=== PATIENT | male | born 1945 | race Caucasian/White ===

== ENCOUNTER 2016-07-24 09:22 | Day surgery (SDC) | payer MEDICARE, BC ==
[2016-07-22 10:37] VITALS: BMI 51.7
[2016-07-24] MEDS ORDERED: LACTATED RINGERS 1,000 ML IV ONE (10:25)
[2016-07-24 10:30] VITALS: RESP 18; TEMP 98.5
[2016-07-24 10:40] LABS: Glucose,Whole Blood 110 mg/dL (75-99)
[2016-07-24] MEDS ORDERED: LIDOCAINE 1% 20 ML VIAL (10MG/ML) FOR IV START INTRADERMA ONE (10:41)
[2016-07-24] MEDS ORDERED: PROPOFOL 10 MG/ML 20 ML VIAL IV ONE (11:24)
[2016-07-24 12:22] VITALS: BP 128/49; PULSE 80
--- NOTE | 2016-08-01 10:57 | P.PCN ---
Date of Procedure: 07/24/16 Procedure(s) Performed: Brief history: Patient is a pleasant 70-year-old white male, scheduled for an elective upper endoscopy as well as colonoscopy as a part of evaluation of iron deficiency anemia. He was recently noted to have a hemoglobin of 9 g/dL. He denies any GI symptoms. Procedure performed: Esophagogastroduodenoscopy with biopsy Colonoscopy with biopsy Preoperative diagnosis: Iron deficiency anemia Anesthesia: MAC Procedure: After informed consent was obtained from the patient was brought into the endoscopy unit and IV conscious sedation was administered by anesthesia under continuous monitoring. Initially upper endoscopy was done. The Olympus GF 160 video endoscope was inserted inserted into the mouth and esophagus intubated without any difficulty and was gradually advanced into the gastric pouch that showed mild gastritis. The anastomosis appeared normal. The scope was advanced into the efferent loop and approximately 40 cm which appeared entirely normal. Biopsies were done from the jejunum to rule out celiac disease. The scope was withdrawn to the gastric pouch and the mucosa appeared normal. The scope was then withdrawn into the esophagus. The GE junction was located at 40 cm to the incisors. It appeared regular with no erythema erosions or ulcerations. Rest of the esophagus appeared normal. Patient tolerated the procedure well. At this time the patient continued to remain sedation. Initial digital rectal examination was normal. Olympus CF 160 video colonoscope was then inserted into the rectum and gradually advanced to the ascending colon and the cecum couldn't be visualized. However the scope could not be advanced into the base of the cecum. On the ileocecal valve there was a 1 cm some mucosal polyp that was biopsied. Careful examination was performed as the scope was gradually being withdrawn. The prep was excellent. The ascending colon, transverse colon, appeared normal. In the hepatic flexure there was a 5 mm polyp that was removed by biopsy. The descending colon, sigmoid colon and rectum appeared normal. Scattered sigmoid diverticulosis seen. Retroflexion was performed in the rectum and no lesions were noted. Patient tolerated the procedure well. Impression: 1. Upper endoscopy revealed mild gastritis of the gastric pouch and normal- appearing anastomosis and the proximal jejunum. 2. Colonoscopy revealed; a) 1 cm submucosal polyp on the ileocecal valve status post biopsy b) 5 mg hepatic flexure polyps status post biopsy c) scattered sigmoid diverticulosis. Recommendations: Findings of this examination were discussed with the patient as well as his family. He was advised to follow with the biopsy results. If the biopsy shows a tubular adenoma he can have a repeat colonoscopy in 3 years. He was advised to start on iron supplements and have his hemoglobin and hematocrit monitored closely. If he continues to have persistent iron deficiency anemia he will be a candidate for small bowel capsule endoscopy in the future. At this time it appears that the iron deficiency anemia could be related to poor iron absorption from previous gastric bypass surgery.
== END 2016-07-24 12:38 | disposition home or self-care (01) ==
LOC: ORWHC2ENDO 09:22
PROVIDERS: ATTEND Internal Medicine Gastroenterology
DX: D12.3 Benign neoplasm of transverse colon (principal); K29.50 Unspecified chronic gastritis without bleeding; K57.30 Diverticulosis of large intestine without perforation or abscess without bleeding; K52.9 Noninfective gastroenteritis and colitis, unspecified; I38 Endocarditis, valve unspecified; J45.909 Unspecified asthma, uncomplicated; G47.33 Obstructive sleep apnea (adult) (pediatric); N42.9 Disorder of prostate, unspecified; Z79.891 Long term (current) use of opiate analgesic; Z79.899 Other long term (current) drug therapy; Z88.5 Allergy status to narcotic agent
CPT/HCPCS: 88305; 88342; 45380; 43239; J2704; 99153

== ENCOUNTER → 2018-08-19 | Outpatient (CLI) | payer MEDICARE, BC | END | disposition home or self-care (01) | LOC: LABWHC1 12:58 | PROVIDERS: ATTEND Urology | DX: N20.0 Calculus of kidney (principal) | CPT/HCPCS: 36415; 84550 ==

== ENCOUNTER → 2019-02-03 | Outpatient (CLI) | payer MEDICARE, BC ==
[2019-02-03 10:35] LABS: Calcium 8.8 mg/dL (8.4-10.2); Potassium 4.4 mmol/L (3.5-5.1)
--- NOTE | 2019-02-03 19:33 | CT ---
EXAMINATION TYPE: CT chest abdomen w con DATE OF EXAM: 02/03/2019 INDICATION: AAA, Aortic dilatation, NESTOR, HTN, Obseity COMPARISON: None CT DLP: 6578.90 mGycm CONTRAST: Performed without Oral Contrast and with IV Contrast, patient injected with 100 ml mL of Isovue 300. TECHNIQUE: Axial images at 5 mm thick sections. Reconstructed images in the coronal plane. Delayed images through the kidneys. FINDINGS: CT CHEST: Small Portion of the thyroid visualized is normal. No suspicious lung nodules are evident. There may be some minimal atelectatic type changes present. No enlarged mediastinal or hilar adenopathy is evident. Aorta: The ascending thoracic aorta at the aortic root measures 3.8 cm. The ascending thoracic aorta at the main pulmonary artery measures 4.4 cm. The aorta at the aortic arch measures 3.2 cm. The desce nding thoracic aorta tapers to its visualized course and measures 2.6 cm transverse dimension at the level of the diaphragm. The main pulmonary artery diameter at the bifurcation is 2.[address] ABDOMEN: Abdomen is very limited due to patient body habitus. There is prior anterior abdominal wa ll repair. Old hernia may be present. Liver: Normal Spleen: Normal Pancreas: Normal Adrenal glands: The adrenal glands are normal. Gallbladder: Normal Kidneys: No masses are evident. No hydronephrosis is present. No cysts are present. A 0.4 cm nonob structing renal stones at the posterior inferior pole left kidney. A nonobstructing renal stone measu ring 0.4 cm cyst in the posterior mid right kidney. There are some additional punctate calcifications within the midportion left kidney measuring 0.4 cm or less without evidence of obstruction. Abdominal Aorta: The proximal abdominal aorta at the diaphragm just below the superior mesenteric art renny measures 2.6 cm. The mid abdominal aorta measures 2.5 cm. Some tortuosity is present at this leve l. The distal abdominal aorta at the bifurcation is 2.4 cm. The iliac arteries contain calcification but appear nonaneurysmal. Inferior vena cava: Normal. IMPRESSIONS: 1. There is some ascending thoracic aortic aneurysmal dilatation up to 4.4 cm in its midportion. 2. Within the thoracic aorta no suspicious dissection is evident. 3. Lack of significant contrast within the abdominal aorta however prevents evaluation for dissection within the abdominal aorta. No aneurysmal dilatation is evident however. 4. Nonobstructing bilateral renal stones.
== END ==
LOC: RADCTMAIN 09:34
PROVIDERS: ATTEND Internal Medicine
DX: I71.4 Abdominal aortic aneurysm, without rupture (principal); I77.819 Aortic ectasia, unspecified site; N20.0 Calculus of kidney; I10 Essential (primary) hypertension; E66.9 Obesity, unspecified; G47.33 Obstructive sleep apnea (adult) (pediatric); I71.2 Thoracic aortic aneurysm, without rupture
CPT/HCPCS: 80048; 71260; 74160; 36415; Q9967

== ENCOUNTER → 2019-05-28 | Outpatient (CLI) | payer MEDICARE, BC ==
--- NOTE | 2019-05-28 13:11 | XR ---
EXAMINATION TYPE: XR chest 2V DATE OF EXAM: 05/28/2019 COMPARISON: 03/28/2009 HISTORY: Shortness of breath TECHNIQUE: Frontal and lateral views of the chest are obtained. FINDINGS: Scattered senescent parenchymal changes noted. Hyperinflation compatible with COPD. No evidence for infiltrate. No evidence for atelectasis. Chronic elevation right hemidiaphragm. Right basilar parenchymal scarring. Heart size is stable. Mediastinal structures are stable and grossly unremarkable. No evidence for hilar prominence. Degenerative changes dorsal spine. IMPRESSION: 1. No evidence for acute pulmonary disease.
[2019-05-28 13:20] LABS: African American GFR (CKD) >90 (>60 ml/min/1.73 sqM); Anion Gap 9 mmol/L; Blood Urea Nitrogen 19 mg/dL (9-20); Calcium 9.2 mg/dL (8.4-10.2); Carbon Dioxide 25 mmol/L (22-30); Chloride 108 mmol/L (98-107); Glucose 132 mg/dL (74-99); LDH 374 U/L (313-618); Non-African American GFR(CKD) 87 (>60 ml/min/1.73 sqM); Sodium 142 mmol/L (137-145)
[2019-05-28 13:27] LABS: Potassium 4.4 mmol/L (3.5-5.1)
[2019-05-28 13:40] LABS: Creatine Kinase MB 0.6 ng/mL (0.0-2.4); Troponin I <0.012 ng/mL (0.000-0.034)
== END | disposition home or self-care (01) ==
LOC: LABWHC1 12:23
PROVIDERS: ATTEND Family Medicine
DX: R07.9 Chest pain, unspecified (principal); R06.02 Shortness of breath
CPT/HCPCS: 36415; 71046; 80048; 82553; 83615; 83735; 83880; 84484; 85379

== ENCOUNTER → 2019-05-31 | Outpatient (CLI) | payer MEDICARE, BC ==
--- NOTE | 2019-05-31 11:30 | CT ---
EXAMINATION TYPE: CT angio chest DATE OF EXAM: 05/31/2019 COMPARISON: CT chest February 03, 2019 HISTORY: elevated d dimer CT DLP: 922.2 mGycm. Automated Exposure Control for Dose Reduction was Utilized. CONTRAST: CTA scan of the thorax is performed with IV Contrast, patient injected with 100 mL of Isovue 370, pul monary embolism protocol. MIP Images are created on CT scanner and reviewed. FINDINGS: Exam suboptimal due to patient's large body habitus as well as respiratory motion artifact degradation making evaluation suboptimal particularly for subcentimeter nodules. LUNGS: Persistent elevated right hemidiaphragm. Scattered peripheral reticulation and fibrosis bilate rally most prominent involving the mid lungs greater on the right. No new consolidation. No pleural e ffusion or pneumothorax. MEDIASTINUM: There is suboptimal bolus with all central pulmonary embolism, smaller segmental and sub segmental PE cannot be excluded on this study. Pulmonary arteries are not enlarged. Adjacent ascendi ng aorta measures up to 4.4 cm in diameter rectum is 78 There are no greater than 1 cm hilar or media stinal lymph nodes. No cardiomegaly or pericardial effusion is seen. OTHER: Visualized liver is low dense consistent with diffuse fatty infiltration. IMPRESSION: 1. Suboptimal study without central pulmonary embolus, smaller segmental and subsegmental PE cannot b e excluded on this study. 2. Moderate peripheral fibrotic changes bilaterally without suspicious acute pulmonary process. Redem onstration of ascending aortic aneurysm up to 4.4 cm.
== END ==
LOC: RADCTMAIN 10:48
PROVIDERS: ATTEND Family Medicine
DX: J84.10 Pulmonary fibrosis, unspecified (principal); I71.2 Thoracic aortic aneurysm, without rupture
CPT/HCPCS: 71275; Q9967

== ENCOUNTER → 2019-06-10 | Outpatient (CLI) | payer MEDICARE, BC ==
--- NOTE | 2019-06-10 15:08 | US ---
EXAMINATION TYPE: US venous doppler duplex LE DATE OF EXAM: 06/10/2019 2:56 PM COMPARISON: NONE CLINICAL HISTORY: R79.1 Abn findings on CTA; Lower extremity. pain Exam limitations due to body habit us. SIDE PERFORMED: Bilateral TECHNIQUE: The lower extremity deep venous system is examined utilizing real time linear array sonog manuel with graded compression, doppler sonography and color-flow sonography. VESSELS IMAGED: External Iliac Vein (EIV) Common Femoral Vein Deep Femoral Vein Greater Saphenous Vein * Femoral Vein Popliteal Vein Small Saphenous Vein * Proximal Calf Veins (* superficial vessels) Grayscale, color doppler, spectral doppler imaging performed of the deep veins of the lower extremiti es. There is normal flow, compressibility, vascular waveforms. Right Leg: Negative for DVT Left Leg: Negative for DVT IMPRESSION: Limited exam secondary to patient body habitus. Given these limitations no sonographic ev idence of deep venous thrombosis is seen within the bilateral lower extremities.
== END ==
LOC: RADUSWWP 14:13
PROVIDERS: ATTEND Family Medicine
DX: R79.1 Abnormal coagulation profile (principal)
CPT/HCPCS: 93970

== ENCOUNTER 2021-02-21 07:44 | Day surgery (SDC) | payer MEDICARE, BC ==
[~2021-02-21 07:44] MED LIST: LACTATED RINGERS 1,000 ML IV SCH
[2021-02-21 08:27] VITALS: RESP 16; TEMP 98.2
[2021-02-21 08:56] LABS: Anisocytosis Slight; Basophils % (A) 0 %; Eosinophils # (A) 0.2 k/uL (0-0.7); Eosinophils % (A) 3 %; HCT 40.6 % (39.0-53.0); HGB 12.5 gm/dL (13.0-17.5); Hypochromasia Moderate; Lymphocytes % (A) 14 %; MCH 33.7 pg (25.0-35.0); MCHC 30.8 g/dL (31.0-37.0); MCV 109.4 fL (80.0-100.0); Macrocytosis Marked; Mean Platelet Volume 8.2; Monocytes # (A) 0.3 k/uL (0-1.0); Monocytes % (A) 4 %; Neutrophils # (A) 5.9 k/uL (1.3-7.7); Neutrophils % (A) 77 %; Platelet Count 502 k/uL (150-450); Poikilocytosis Slight; RBC 3.71 m/uL (4.30-5.90); RDW 19.9 % (11.5-15.5); Reticulocyte % 3.3 % (0.5-2.0); WBC 7.7 k/uL (3.8-10.6)
[2021-02-21 09:49] LABS: Polychromasia Present
[2021-02-21] MEDS ORDERED: fentaNYL (PF) 50 MCG/ML 2 ML AMP ONE (10:00)
[2021-02-21] MEDS ORDERED: MIDAZOLAM 2 MG/2 ML VIAL ONE (10:00)
[2021-02-21] MEDS ORDERED: KETAMINE 10 MG/ML 20 ML VIAL ONE (10:00)
[2021-02-21] MEDS ORDERED: SODIUM CHLORIDE 0.9% 500 ML 500 ML IV ONE (10:55)
[2021-02-21 11:20] VITALS: BP 121/81; PULSE 83
--- NOTE | 2021-02-21 13:05 | CT ---
EXAMINATION TYPE: CT biopsy bone marrow DATE OF EXAM: 02/21/2021 HISTORY: Anemia, D 64.89 COMPARISON: CT 02/03/2019 Maximal barrier technique was utilized, hand hygiene obtained with soap and water. The skin overlyin g a suitable path to the posterior left ilium was localized using CT and the overlying skin was prepp ed and draped. Lidocaine used for local anesthesia. A skin tiffany made with a scalpel. Using CT guid ance, access was gained to the posterior left ilium with a 9 core needle. Core specimen submitted to laboratory, dry tap obtained on aspiration. Following the procedure no immediate complications. T he patient is discharged in stable condition in the care of anesthesiology service. Hemostasis achie trey. IMPRESSION: SUCCESSFUL CT GUIDED BONE MARROW BIOPSY BIOPSY as described. PATHOLOGY PENDING. THIS PROCEDURE WAS PERFORMED BY THE UNDERSIGNED.
== END 2021-02-21 11:47 | disposition home or self-care (01) ==
LOC: RADPROMAIN 07:44
PROVIDERS: ATTEND Internal Medicine Hematology & Oncology
DX: D64.9 Anemia, unspecified (principal); I49.9 Cardiac arrhythmia, unspecified; Z86.711 Personal history of pulmonary embolism; G47.33 Obstructive sleep apnea (adult) (pediatric); J40 Bronchitis, not specified as acute or chronic; K21.9 Gastro-esophageal reflux disease without esophagitis; Z79.01 Long term (current) use of anticoagulants; Z79.899 Other long term (current) drug therapy; M19.90 Unspecified osteoarthritis, unspecified site; N42.9 Disorder of prostate, unspecified; Z87.11 Personal history of peptic ulcer disease
CPT/HCPCS: 38222; 85025; 85045; 36415; 77012; J2250; J3010

== ENCOUNTER → 2021-11-05 | Outpatient (CLI) | payer MEDICARE, BC ==
--- NOTE | 2021-11-06 04:19 | MR ---
EXAMINATION TYPE: MR cervical spine wo con DATE OF EXAM: 11/05/2021 COMPARISON: None HISTORY: Cervical vertebra have normal alignment. Disc spaces are fairly normal. No compression fract ure. Cervical spinal cord has normal signal pattern. No edema. There are small posterior disc bulges at C3-4 and C6-7. There is developmentally large spinal canal and no spinal stenosis. The stem is int act. Facet joints are intact. There is no evidence of cervical paraspinal mass. IMPRESSION: Minimal posterior disc bulging as above. No spinal stenosis. No fracture.
== END | disposition home or self-care (01) ==
LOC: RADMRIMAIN 05:54
PROVIDERS: ATTEND Psychiatry & Neurology Neurology
DX: M50.03 Cervical disc disorder with myelopathy, cervicothoracic region (principal); M48.02 Spinal stenosis, cervical region
CPT/HCPCS: 72141

== ENCOUNTER → 2022-04-11 | Outpatient (CLI) | payer MEDICARE, BC ==
--- NOTE | 2022-04-11 10:50 | CT ---
EXAMINATION TYPE: CT abdomen pelvis wo con CT DLP: 759 mGycm, Automated exposure control for dose reduction was used. DATE OF EXAM: 04/11/2022 9:52 AM COMPARISON: CT chest abdomen 02/03/2019. CLINICAL INDICATION:Male, 76 years old with history of R31.1 micro hematuria; hematuria TECHNIQUE: Standard CT of the abdomen and pelvis without IV or oral contrast. Lack of IV or oral co ntrast limits evaluation of solid and hollow organ viscera. Coronal and sagittal reformats were perfo rmed. FINDINGS: Limited examination due to patient's body habitus and lack of intravenous contrast. LOWER CHEST: Scattered peripheral reticulation and fibrosis bilaterally redemonstrated. Coronary ling rial calcifications. Elevated right hemidiaphragm redemonstrated. ABDOMEN LIVER: Unremarkable noncontrast appearance. GALLBLADDER AND BILE DUCTS: Cholelithiasis. No biliary ductal dilatation. PANCREAS: Proximal noncontrast appearance. SPLEEN: Unremarkable noncontrast appearance. ADRENAL GLANDS: Unremarkable noncontrast appearance. KIDNEYS AND URETERS: No hydronephrosis . Bilateral nonobstructive renal calculi. There are 2 in the right kidney with largest in the right renal pelvis measuring up to 1.5 cm. There are 3 in the left k idney with the largest measuring up to 6 mm. No ureteral calculi. PELVIS BLADDER: Incompletely distended but grossly unremarkable. REPRODUCTIVE: Unremarkable. 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 Small hiatal hernia. Distal co lonic diverticulosis without evidence for acute diverticulitis. Anastomosis in the right upper quadra nt. No surrounding inflammatory changes. No evidence of bowel obstruction. PERITONEUM: No evidence of pneumoperitoneum or free fluid. VASCULATURE: Mild atherosclerotic calcifications are present throughout the abdominal aorta and its b ranches. No evidence of aortic aneurysm. Tortuosity of the abdominal aorta. MUSCULOSKELETAL: No acute osseous abnormalities. Mild disc degeneration changes are present throughou t the thoracolumbar spine. LYMPH NODES: No gross evidence for lymphadenopathy. SOFT TISSUE/ABDOMINAL WALL: Post surgical changes of the anterior abdominal wall with mesh repair. Re gions of fat stranding demonstrated within the right anterior abdominal wall soft tissues. IMPRESSION: 1. No acute abdominal/pelvic process within limitations of a noncontrast exam. 2. Bilateral nonobstructive renal calculi with a 1.5 cm calculus in the right renal pelvis. 3. Postsurgical changes. 4. Cholelithiasis.
== END | disposition home or self-care (01) ==
LOC: RADCTMAIN 09:28
PROVIDERS: ATTEND Urology
DX: N20.0 Calculus of kidney (principal); K80.20 Calculus of gallbladder without cholecystitis without obstruction
CPT/HCPCS: 74176

== ENCOUNTER → 2022-05-14 | Outpatient (CLI) | payer MEDICARE, BC ==
[2022-05-14 23:22] LABS: Basophils # (A) 0.05 X 10*3/uL (0.00-0.10); Basophils % (A) 0.5 %; Eosinophils # (A) 0.11 X 10*3/uL (0.04-0.35); Eosinophils % (A) 1.2 %; HCT 47.2 % (39.6-50.0); HGB 14.9 g/dL (13.0-17.0); Immature Grans, Automated 0.5 %; Lymphocytes # (A) 2.55 X 10*3/uL (0.90-5.00); Lymphocytes % (A) 27.5 %; MCHC 31.6 g/dL (32.0-37.0); MCV 104.7 fL (80.0-97.0); Mean Platelet Volume 11.3 fL (9.5-12.2); Monocytes # (A) 0.89 X 10*3/uL (0.20-1.00); Monocytes % (A) 9.6 %; NRBC Per 100 WBC 0 /100 WBCS (0.0-0.0); Neutrophils # (A) 5.61 X 10*3/uL (1.80-7.70); Neutrophils % (A) 60.7 %; Platelet Count 260 X 10*3/uL (140-440); RBC 4.51 X 10*6/uL (4.40-5.60); RDW 15.4 % (11.5-14.5); WBC 9.26 X 10*3/uL (4.50-10.00)
[2022-05-14 23:58] LABS: African American GFR (CKD) 97.2 (60.0-200.0); Anion Gap 7.9 mmol/L (10.00-18.00); BUN/Creat Ratio 21.33 Ratio (12.00-20.00); Blood Urea Nitrogen 19.2 mg/dL (9.0-27.0); Calcium 9.4 mg/dL (8.7-10.3); Carbon Dioxide 29.1 mmol/L (20.0-27.5); Non-African American GFR(CKD) 83.8 (60.0-200.0); Potassium 4.9 mmol/L (3.5-5.5)
== END | disposition home or self-care (01) ==
LOC: LABPAT 15:12
PROVIDERS: ATTEND Urology
DX: Z01.812 Encounter for preprocedural laboratory examination (principal); N20.0 Calculus of kidney
CPT/HCPCS: 80048; 85025

== ENCOUNTER 2022-05-16 07:13 | Day surgery (SDC) | payer MEDICARE, BC ==
--- NOTE | 2022-05-15 20:01 | P.GSHP ---
History of Present Illness H&P Date: 05/15/22 Chief Complaint: Microhematuria The patient is a 76-year-old white male with a history of uric acid urolithiasis. He was recently found to have microhematuria. CT scan shows 2 right renal calculi, the largest of which measures 1.5 cm and is located within the right renal pelvis. There are 3 left renal calculi measuring up to 6 mm in size. There is no hydronephrosis or ureteral calculi seen. He takes potassiums citrate for urinary alkalinization and for treatment of hypocitraturia. His urine pH fluctuates between 5.5 and 7.0. - Constitutional Constitutional: Denies chills, Denies fever - Gastrointestinal Gastrointestinal: Denies nausea, Denies vomiting - Genitourinary (Male) Genitourinary: Reports kidney stones, Denies dysuria, Denies flank pain, Denies hematuria Past Medical History Past Medical History: GI Bleed, Osteoarthritis (OA), Prostate Disorder, Pulmonary Embolus (PE), Sleep Apnea/CPAP/BIPAP Additional Past Medical History / Comment(s): HX: SWELLING IN LEGS. USES CPAP. Recent bronchitis. Hypoglycemia.procedure, knee problems, chronic anemIA requiring blood transfusions. BONE MARROW BX-NO RESULTS (SINCE HANDS AND FEET NUMB). 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 Ny en y- gastric surgery. Knee replacement rt x2, LEFT KNEE REPLACEMENT X 2. ORIF RIGHT FEMUR. Cardiac ABLATION Past Anesthesia/Blood Transfusion Reactions: No Reported Reaction Past Psychological History: No Psychological Hx Reported Smoking Status: Former smoker Past Alcohol Use History: Occasional Past Drug Use History: None Reported - Past Family History Mother Family Medical History: No Reported History Medications and Allergies Home Medications Medication Instructions Recorded Confirmed Type Acetaminophen Tab [Tylenol Tab] 1,000 mg PO BID 07/22/16 05/13/22 History Multivitamins, Thera [Multivitamin] 2 tab PO DAILY 07/22/16 05/13/22 History Stool Softener 3 tab PO QAM 07/22/16 05/13/22 History Tamsulosin HCl [Flomax] 0.4 mg PO BID 07/22/16 05/13/22 History diazePAM [Valium] 5 mg PO HS 07/22/16 05/13/22 History Apixaban [Eliquis] 5 mg PO BID 02/13/21 05/13/22 History Cyanocobalamin (Vitamin B-12) 1,000 mcg PO TH 02/13/21 05/13/22 History [Vitamin B-12] Ferrous Sulfate [Feosol] 325 mg PO BID 02/13/21 05/13/22 History Pantoprazole [Protonix] 40 mg PO BID 02/13/21 05/13/22 History Furosemide [Lasix] 20 mg PO BID 05/13/22 05/13/22 History Gabapentin 600 mg PO HS 05/13/22 05/13/22 History Metoprolol Tartrate 25 mg PO BID 05/13/22 05/13/22 History Potassium Citrate [Potassium 2 tab PO QID 05/13/22 05/13/22 History Citrate ER] Vit C/E/Zn/Coppr/Lutein/Zeaxan 1 cap PO DAILY 05/13/22 05/13/22 History [Preservision Areds 2 Softgel] Allergies Allergy/AdvReac Type Severity Reaction Status Date / Time codeine Allergy Dyspnea Verified 05/13/22 15:16 Surgical - Exam - General well developed, well nourished, no distress - Neck no masses, trachea midline - Respiratory normal respiratory effort - Abdomen Abdomen: soft, non tender, no guarding, no rigid, no rebound - Genitourinary normal penis with no external lesions, testicles non-tender - Psychiatric oriented to time, oriented to person, oriented to place, speech is normal, memory intact Results - Imaging CT scan - abdomen: report reviewed, image reviewed Assessment and Plan (1) Calculus of kidney Status: Acute Code(s): N20.0 - CALCULUS OF KIDNEY SNOMED Code(s): 50023229 Plan: Cystoscopy, right ureteroscopy with Holmium laser lithotripsy and stone basketing, right ureteral stent insertion. The procedure has been reviewed in detail with the patient. He has been made aware of potential risks, which include anesthesia, bleeding, infection, and ureteral injury. He is also aware of the possible need for secondary procedure.
[~2022-05-16 07:13] MED LIST changes: +DEXAMETHASONE SOD PHOSPHATE 4 MG/ML 1 ML VIAL IV ONE; +ONDANSETRON 4 MG/2 ML VIAL IVP ONE; +ceFAZolin 3 GM in SODIUM CHLORIDE 0.9% 100 ML IVPB PRN; +fentaNYL (PF) 50 MCG/ML 2 ML AMP IV PRN
--- NOTE | 2022-05-16 08:25 | XR ---
EXAMINATION TYPE: XR KUB DATE OF EXAM: 05/16/2022 7:32 AM INDICATION: Patient age:Male; 76 years old; Reason for study: PRE-OP: LOCATION OF RENAL CALCULI; COMPARISON: 04/11/2022 TECHNIQUE: One radiographic view of the abdomen was obtained. FINDINGS: Redemonstration of calcific densities project over the right renal sinus and renal calyces measuring up to 20 mm in the renal pelvis. Subcutaneous ossifications are seen on prior CT and anteri or abdominal wall superficially. The bowel gas pattern is nonspecific without dilated loops of small or large bowel. There is no evidence for organomegaly or pneumoperitoneum. The osseous structures ar e intact. Fecal material and gas are demonstrated throughout the colon and rectum. IMPRESSION: 1. Redemonstration of right renal calculi the largest in the renal pelvis measuring up to 20 mm. 2. Other calcific densities project over the pelvis correlate with subcutaneous calcifications
[2022-05-16] MEDS ORDERED: fentaNYL (PF) 50 MCG/ML 2 ML AMP ONE (09:33)
[2022-05-16] MEDS ORDERED: SUCCINYLCHOLINE CHLORIDE 200 MG/10 ML VIAL IV ONE (09:33)
[2022-05-16] MEDS ORDERED: NEOSTIGMINE 1 MG/ML 10 ML VIAL ONE (09:33)
[2022-05-16] MEDS ORDERED: KETOROLAC 15 MG/ML 1 ML VIAL ONE (09:33)
[2022-05-16] MEDS ORDERED: PROPOFOL 10 MG/ML 20 ML VIAL IV ONE (09:33)
[2022-05-16] MEDS ORDERED: MIDAZOLAM 2 MG/2 ML VIAL ONE (09:33)
[2022-05-16] MEDS ORDERED: GLYCOPYRROLATE 0.2 MG/ML 2 ML VIAL ONE (09:33)
[2022-05-16] MEDS ORDERED: ROCURONIUM 10 MG/ML (5 ML VIAL) IV ONE (09:33)
[2022-05-16] MEDS ORDERED: LIDOCAINE 2% INJ 20 MG/ML (2 ML VIAL) ONE (09:33)
[2022-05-16] MEDS ORDERED: PHENYLEPHRINE-0.9% NACL SYG 1,000 MCG/10 ML SYRINGE ONE (09:33)
[2022-05-16 11:37] VITALS: TEMP 97
--- NOTE | 2022-05-16 11:42 | FL ---
Intraoperative/procedural fluoroscopic services were provided. Total fluoroscopy time is 22.6 seconds with a total of 6 submitted images to PACS. Please see the operative/procedural note for further det ails.
[2022-05-16 12:06] VITALS: RESP 17
[2022-05-16 12:19] LABS: Glucose,Whole Blood 168 mg/dL (70-110)
[2022-05-16 12:31] VITALS: BP 122/76; PULSE 64
--- NOTE | 2022-05-18 14:25 | P.OP ---
Date of Procedure: 05/16/22 Preoperative Diagnosis: Right renal calculi Postoperative Diagnosis: Same Procedure(s) Performed: cystoscopy, right ureteroscopy with Holmium laser lithotripsy and stone basketing, right ureteral stent insertion Anesthesia: BRANDON Surgeon: Lazaro Gilmore Estimated Blood Loss (ml): 5 IV fluids (ml): 600 Pathology: other (calculus fragments, sent for chemical analysis) Condition: stable Disposition: PACU Indications for Procedure: The patient is a 76-year-old white male with a history of uric acid urolithiasis. He was recently found to have microhematuria. CT scan shows 2 right renal calculi, the largest of which measures 1.7 cm and is located within the right renal pelvis. There are 3 left renal calculi measuring up to 6 mm in size. There is no hydronephrosis or ureteral calculi seen. He takes potassiums citrate for urinary alkalinization and for treatment of hypocitraturia. His urine pH fluctuates between 5.5 and 7.0. Operative Findings: 2 right renal calculi, fragmented completely. Description of Procedure: The patient was taken to the operating room and placed in the dorsolithotomy position, with legs supported in Chaka stirrups. The external genitalia was prepped and draped sterilely. The 30 lens was used to introduce the 21-Afghan Mccray cystoscopic sheath through the urethra and into the bladder under direct vision. The prostatic urethra showed evidence of mild lateral lobe enlargement. The bladder was examined in its entirety. Both ureteral orifices were normal anatomic location and configuration, and clear urine effluxed from both. No tumors or foreign bodies were seen. A 0.038 inch Glidewire was passed through the cystoscope. The ureteral orifice was cannulated, and the Glidewire was advanced up to the renal pelvis. The cystoscope was removed, and an 11/13- Afghan ureteral access catheter was passed over the wire, up to the proximal ureter. The Mccray Teramindra flexible ureteroscope was then passed through the ureteral access catheter sheath and advanced under direct vision up to the right renal pelvis, where the large renal pelvic calculus was seen. An additional 8 mm stone was seen within a mid pole calyx. The 272 micron Holmium laser probe was passed through the ureteroscope, and lithotripsy was performed to treat the renal pelvic calculus using a dusting mode. However, the calculus performed with layers which broke away, and therefore the fragmenting mode was also utilized. The majority of the calculus fragments refluxed into an upper pole calyx, and these fragments were treated utilizing a popcorning mode. At this point, there were no visible calculus fragments exceeding 1 mm in size, and none were seen on fluoroscopy. Attention was then paid to the mid pole calculus. The calculus was positioned within the calyx in such a way that it could not be treated. Therefore, a 1.9-Afghan nitinol basket was used to reposition the calculus within the renal pelvis, where lithotripsy was performed. Several of the larger fragments were removed via stone basketing. The remainder were treated via dusting. At this time, the ureteroscope was slowly withdrawn. Pole ureteroscopy showed no evidence of ureteral trauma. The Glidewire was passed through the ureteral access catheter sheath, which was removed. The Glidewire was then backloaded into the cystoscope, which was advanced into the bladder. A 28 cm, 6-Afghan double-J ureteral stent was placed over the wire. Proper stent positioning was verified fluoroscopically and endoscopically. The bladder was emptied and the cystoscope removed. The patient tolerated the procedure well and was taken to the recovery room in stable condition. [facility] Report: Procedure Acuity: Elective Stone Size and Location: 17 mm, right renal pelvis Ureteral Dilation: No Ureteral Access Sheath Used: Yes Stone Sent for Analysis: Yes All Stones/Fragments Were Removed with a Basket: No Complications: No Preoperative Antibiotics Given: Yes Stent Placed: Yes If Stent Placed, Was String Left Attached: No If Stent Placed, When is it to be Removed: 2 weeks Discharge Medications: Tamsulosin, Toradol
== END 2022-05-16 13:51 | disposition home or self-care (01) ==
LOC: OR 07:13
PROVIDERS: ATTEND Urology
DX: N20.0 Calculus of kidney (principal); M19.90 Unspecified osteoarthritis, unspecified site; G47.30 Sleep apnea, unspecified; Z86.11 Personal history of tuberculosis; Z87.442 Personal history of urinary calculi; Z88.2 Allergy status to sulfonamides; Z96.653 Presence of artificial knee joint, bilateral; Z87.891 Personal history of nicotine dependence; Z86.59 Personal history of other mental and behavioral disorders; Z79.01 Long term (current) use of anticoagulants; Z79.83 Long term (current) use of bisphosphonates
CPT/HCPCS: 52356; 82365; 74018; C2625; C1769; J2250; J0330; J1100; J2710; J0690; J2405; J3010; J1885; J2370; J2704; J2001

== ENCOUNTER 2022-06-03 06:12 | Day surgery (SDC) | payer MEDICARE, BC ==
--- NOTE | 2022-05-29 19:27 | P.GSHP ---
History of Present Illness H&P Date: 05/29/22 Chief Complaint: Microhematuria The patient is a 76-year-old white male with a history of uric acid urolithiasis. He was recently found to have microhematuria. CT scan shows 2 right renal calculi, the largest of which measures 1.5 cm and is located within the right renal pelvis. There are 3 left renal calculi measuring up to 6 mm in size. There is no hydronephrosis or ureteral calculi seen. He takes potassiums citrate for urinary alkalinization and for treatment of hypocitraturia. His urine pH fluctuates between 5.5 and 7.0. On 05/16/2022 he underwent right ureteroscopy with holmium laser lithotripsy and stone basketing. The 2 right renal calculi were fragmented, and were composed of calcium oxalate monohydrate. Although fragmentation of the calculi appeared complete, he was advised to undergo stent removal in the operating room to allow ureteroscopic removal of any unrecognized large right renal calculus fragments. - Constitutional Constitutional: Denies chills, Denies fever - Gastrointestinal Gastrointestinal: Denies nausea, Denies vomiting - Genitourinary (Male) Genitourinary: Reports kidney stones, Denies dysuria, Denies flank pain, Denies hematuria Past Medical History Past Medical History: GI Bleed, Osteoarthritis (OA), Prostate Disorder, Pulmonary Embolus (PE), Sleep Apnea/CPAP/BIPAP Additional Past Medical History / Comment(s): HX: SWELLING IN LEGS. USES CPAP. Recent bronchitis. Hypoglycemia.procedure, knee problems, chronic anemIA requiring blood transfusions. BONE MARROW BX-NO RESULTS (SINCE HANDS AND FEET NUMB). 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 [place] en [place]- gastric surgery. Knee replacement rt x2, LEFT KNEE REPLACEMENT X 2. ORIF RIGHT FEMUR. Cardiac ABLATION Past Anesthesia/Blood Transfusion Reactions: No Reported Reaction Past Psychological History: No Psychological Hx Reported Smoking Status: Former smoker Past Alcohol Use History: Occasional Past Drug Use History: None Reported - Past Family History Mother Family Medical History: No Reported History Medications and Allergies Home Medications Medication Instructions Recorded Confirmed Type Acetaminophen Tab [Tylenol Tab] 1,000 mg PO BID 07/22/16 05/16/22 History Multivitamins, Thera [Multivitamin] 2 tab PO DAILY 07/22/16 05/16/22 History Stool Softener 3 tab PO QAM 07/22/16 05/16/22 History Tamsulosin HCl [Flomax] 0.4 mg PO BID 07/22/16 05/16/22 History diazePAM [Valium] 5 mg PO HS 07/22/16 05/16/22 History Apixaban [Eliquis] 5 mg PO BID 02/13/21 05/16/22 History Cyanocobalamin (Vitamin B-12) 1,000 mcg PO TH 02/13/21 05/16/22 History [Vitamin B-12] Ferrous Sulfate [Feosol] 325 mg PO BID 02/13/21 05/16/22 History Pantoprazole [Protonix] 40 mg PO BID 02/13/21 05/16/22 History Furosemide [Lasix] 20 mg PO BID 05/13/22 05/16/22 History Gabapentin 600 mg PO HS 05/13/22 05/16/22 History Metoprolol Tartrate 25 mg PO BID 05/13/22 05/16/22 History Potassium Citrate [Potassium 2 tab PO QID 05/13/22 05/16/22 History Citrate ER] Vit C/E/Zn/Coppr/Lutein/Zeaxan 1 cap PO DAILY 05/13/22 05/16/22 History [Preservision Areds 2 Softgel] Ketorolac [Toradol] 10 mg PO Q6HR PRN #10 tab 05/16/22 Rx Allergies Allergy/AdvReac Type Severity Reaction Status Date / Time codeine Allergy Dyspnea Verified 05/16/22 07:54 Surgical - Exam - General well developed, well nourished, no distress - Respiratory normal respiratory effort - Abdomen Abdomen: soft, non tender, no guarding, no rigid, no rebound - Genitourinary normal penis with no external lesions, testicles non-tender - Psychiatric oriented to time, oriented to person, oriented to place, speech is normal, memory intact Results - Imaging CT scan - abdomen: report reviewed, image reviewed Assessment and Plan (1) Calculus of kidney Status: Acute Code(s): N20.0 - CALCULUS OF KIDNEY SNOMED Code(s): 67038717 Plan: Cystoscopy, right ureteral stent removal, right ureteroscopy with Holmium laser lithotripsy and stone basketing of any residual right renal calculus fragments. The procedure has been reviewed in detail with the patient. He has been made aware of potential risks, which include anesthesia, bleeding, infection, and ureteral injury.
[2022-06-03 07:31] LABS: Glucose,Whole Blood 124 mg/dL (70-110)
--- NOTE | 2022-06-03 07:37 | XR ---
EXAMINATION TYPE: XR KUB DATE OF EXAM: 06/03/2022 Comparison: 05/16/2022 Clinical History: 76-year-old male pre op kidney stone lithotripsy Findings: Right-sided ureteral stent is demonstrated. Calcifications along the mid to distal right ureteral meek nt measuring 1.6 cm and 1.7 cm. Above. Mild overall stool. Impression: Right-sided ureteral stent. Couple calcifications along the mid and distal right ureter measuring 1.6 cm and 1.8 cm.
[2022-06-03] MEDS ORDERED: ROCURONIUM 10 MG/ML (5 ML VIAL) IV ONE (07:40)
[2022-06-03] MEDS ORDERED: MIDAZOLAM 2 MG/2 ML VIAL ONE (07:40)
[2022-06-03] MEDS ORDERED: LIDOCAINE 2% INJ 20 MG/ML (2 ML VIAL) ONE (07:40)
[2022-06-03] MEDS ORDERED: PHENYLEPHRINE-0.9% NACL SYG 1,000 MCG/10 ML SYRINGE ONE (07:40)
[2022-06-03] MEDS ORDERED: PROPOFOL 10 MG/ML 20 ML VIAL IV ONE (07:40)
[2022-06-03] MEDS ORDERED: GLYCOPYRROLATE 0.2 MG/ML 2 ML VIAL ONE (07:40)
[2022-06-03] MEDS ORDERED: NEOSTIGMINE 1 MG/ML 10 ML VIAL ONE (07:40)
[2022-06-03] MEDS ORDERED: SUCCINYLCHOLINE CHLORIDE 200 MG/10 ML VIAL IV ONE (07:40)
[2022-06-03] MEDS ORDERED: fentaNYL (PF) 50 MCG/ML 2 ML AMP ONE (07:40)
--- NOTE | 2022-06-03 08:55 | P.OP ---
Date of Procedure: 06/03/22 Preoperative Diagnosis: Right renal calculi Postoperative Diagnosis: Same Procedure(s) Performed: Cystoscopy, right ureteral stent removal, right ureteroscopy with stone basketing Anesthesia: BRANDON Surgeon: Lazaro Gilmore Estimated Blood Loss (ml): 10 IV fluids (ml): 700 Pathology: none sent Condition: stable Disposition: PACU Indications for Procedure: The patient is a 76-year-old white male with a history of uric acid urolithiasis. He was recently found to have microhematuria. CT scan shows 2 right renal calculi, the largest of which measures 1.5 cm and is located within the right renal pelvis. There are 3 left renal calculi measuring up to 6 mm in size. There is no hydronephrosis or ureteral calculi seen. He takes potassiums citrate for urinary alkalinization and for treatment of hypocitraturia. His urine pH fluctuates between 5.5 and 7.0. On 05/16/2022 he underwent right ureteroscopy with holmium laser lithotripsy and stone basketing. The 2 right renal calculi were fragmented, and were composed of calcium oxalate monohydrate. Although fragmentation of the calculi appeared complete, he was advised to undergo stent removal in the operating room to allow ureteroscopic removal of any unrecognized large right renal calculus fragments. Operative Findings: Small residual right upper pole calculus fragments. Description of Procedure: The patient was taken to the operating room and placed in the dorsolithotomy position, with legs supported in Chaka stirrups. The external genitalia was prepped and draped sterilely. The 30 lens was used to introduce the 21-Swazi Mccray cystoscopic sheath through the urethra and into the bladder under direct vision. The prostatic urethra showed evidence of mild lateral lobe enlargement. The bladder was examined in its entirety. No abnormalities were seen. Grasping forceps were used to remove the right distal ureteral stent along with the cystoscope. The Mccray semirigid ureteroscope was advanced into the bladder under direct vision. The right ureteral orifice was cannulated, and the ureteroscope was slowly advanced under direct vision up to the right ureteral pelvic junction. No calculus fragments were seen within the ureter. A 0.035 inch Glidewire was passed through the ureteroscope. The ureteroscope was removed, and an 11/13- Swazi ureteral access catheter was passed over the wire, up to the proximal ureter. The [employer] flexible ureteroscope was then passed through the ureteral access catheter sheath and advanced under direct vision up to the right renal pelvis. Each calyx was examined. The only calculus fragments seen were located within an upper pole calyx. A 1.9-Swazi nitinol basket was used to remove these calculus fragments, the largest of which measured only 2 mm in size. Once this was completed, the ureteroscope was slowly withdrawn under direct vision. There was no evidence of ureteral trauma. The patient tolerated the procedure well and was taken to the recovery room in stable condition.
[2022-06-03 08:58] VITALS: TEMP 97
[2022-06-03 09:11] VITALS: RESP 16
--- NOTE | 2022-06-03 09:35 | FL ---
Intraoperative/procedural fluoroscopic services were provided. Total fluoroscopy time is 7 seconds wi th a total of 1 submitted images to PACS. Please see the operative/procedural note for further detail s.
[2022-06-03 09:40] VITALS: BP 115/57; PULSE 64
== END 2022-06-03 10:04 | disposition home or self-care (01) ==
LOC: OR 06:12
PROVIDERS: ATTEND Urology
DX: N20.0 Calculus of kidney (principal); M19.90 Unspecified osteoarthritis, unspecified site; N42.9 Disorder of prostate, unspecified; G47.33 Obstructive sleep apnea (adult) (pediatric); Z99.89 Dependence on other enabling machines and devices; Z86.711 Personal history of pulmonary embolism; Z98.84 Bariatric surgery status; Z98.890 Other specified postprocedural states; Z79.899 Other long term (current) drug therapy; Z79.01 Long term (current) use of anticoagulants; Z79.1 Long term (current) use of non-steroidal anti-inflammatories (NSAID); Z88.5 Allergy status to narcotic agent
CPT/HCPCS: 84132; 74018; 52352; 52332; C1769; J2250; J0330; J1100; J2710; J0690; J2405; J3010; J2370; J2704; J2001

== ENCOUNTER → 2022-11-28 | Outpatient (CLI) | payer MEDICARE, BC ==
[2022-11-28 20:21] LABS: % Iron Saturation 23.55 (15.00-50.00); ALT 15 U/L (10-49); AST 15 U/L (14-35); Albumin 4.1 d/dL (3.8-4.9); Albumin/Globulin Ratio 1.41 Ratio (1.60-3.17); Alkaline Phosphatase 109 U/L (41-126); BUN/Creat Ratio 18.56 Ratio (12.00-20.00); Blood Urea Nitrogen 16.7 mg/dL (9.0-27.0); Calcium 9.4 mg/dL (8.7-10.3); Chloride 104 mmol/L (96-109); Chol/HDL Ratio 2.91 Ratio; Ferritin 73.2 ng/mL (22.0-322.0); Globulin 2.9 d/dL (1.6-3.3); Glucose 122 mg/dL (70-110); Iron 81 UG/DL (65-175); LDL Cholesterol,Calculated 74.7 mg/dL (0.0-131.0); Potassium 4.9 mmol/L (3.5-5.5); Sodium 141 mmol/L (135-145); Total Bilirubin 0.6 mg/dL (0.3-1.2); Total Iron Binding Capacity 344 UG/DL (228-460); Uric Acid 6.4 mg/dL (3.7-8.7)
[2022-11-28 21:30] LABS: Basophils # (A) 0.03 X 10*3/uL (0.00-0.10); Basophils % (A) 0.4 %; Eosinophils # (A) 0.09 X 10*3/uL (0.04-0.35); Eosinophils % (A) 1.1 %; HCT 47.3 % (39.6-50.0); HGB 15.3 d/dL (12.0-15.0); Lymphocytes # (A) 1.96 X 10*3/uL (0.90-5.00); Lymphocytes % (A) 24.4 %; MCH 33.1 pg (27.0-32.0); MCHC 32.3 d/dL (32.0-37.0); MCV 102.4 FL (80.0-97.0); Mean Platelet Volume 10.7 FL (9.5-12.2); Monocytes # (A) 0.61 X 10*3/uL (0.20-1.00); Monocytes % (A) 7.6 %; NRBC Per 100 WBC 0 X 10*3/uL (0.00-0.01); Neutrophils # (A) 5.31 X 10*3/uL (1.80-7.70); Platelet Count 306 X 10*3/uL (140-440); RBC 4.62 X 10*6/uL (4.40-5.60); RDW 15.7 % (11.5-14.5); WBC 8.04 X 10*3/uL (4.50-10.00)
== END | disposition home or self-care (01) ==
LOC: LABWHC1 14:04
PROVIDERS: ATTEND Internal Medicine
DX: Z00.00 Encounter for general adult medical examination without abnormal findings (principal); Z11.59 Encounter for screening for other viral diseases; N20.0 Calculus of kidney; N40.0 Benign prostatic hyperplasia without lower urinary tract symptoms; E11.9 Type 2 diabetes mellitus without complications; D64.9 Anemia, unspecified
CPT/HCPCS: 36415; 80053; 80061; 82607; 82728; 82746; 83036; 83540; 83550; 84153; 84443; 84550; 85025; 86803

== ENCOUNTER → 2022-11-28 | Outpatient (CLI) | payer MEDICARE, BC | END | disposition home or self-care (01) | LOC: RADMRIMAIN 11:30 | PROVIDERS: ATTEND Psychiatry & Neurology Neurology | DX: Z53.9 Procedure and treatment not carried out, unspecified reason (principal) ==

== ENCOUNTER → 2023-05-12 | Outpatient (CLI) | payer MEDICARE ==
[2023-05-12 18:53] LABS: Basophils # (A) 0.02 X 10*3/uL (0.00-0.10); Basophils % (A) 0.3 %; Eosinophils # (A) 0.11 X 10*3/uL (0.04-0.35); Eosinophils % (A) 1.5 %; HCT 43.9 % (39.6-50.0); HGB 14.3 g/dL (13.0-17.0); Lymphocytes # (A) 1.65 X 10*3/uL (0.90-5.00); Lymphocytes % (A) 22.1 %; MCH 33.4 pg (27.0-32.0); MCHC 32.6 g/dL (32.0-37.0); MCV 102.6 FL (80.0-97.0); Mean Platelet Volume 10.7 FL (9.5-12.2); Monocytes # (A) 0.56 X 10*3/uL (0.20-1.00); Monocytes % (A) 7.5 %; NRBC Per 100 WBC 0 X 10*3/uL (0.00-0.01); Neutrophils # (A) 5.08 X 10*3/uL (1.80-7.70); Neutrophils % (A) 68.1 %; Platelet Count 228 X 10*3/uL (140-440); RBC 4.28 X 10*6/uL (4.40-5.60); RDW 14.6 % (11.5-14.5); WBC 7.46 X 10*3/uL (4.50-10.00)
[2023-05-12 19:19] LABS: % Iron Saturation 30.89 (15.00-50.00); ALT 15 U/L (10-49); AST 16 U/L (14-35); Albumin 3.7 g/dL (3.8-4.9); Albumin/Globulin Ratio 1.42 Ratio (1.60-3.17); Alkaline Phosphatase 124 U/L (41-126); BUN/Creat Ratio 19.22 Ratio (12.00-20.00); Blood Urea Nitrogen 17.3 mg/dL (9.0-27.0); Calcium 9.1 mg/dL (8.7-10.3); Carbon Dioxide 24.1 mmol/L (21.6-31.8); Chloride 105 mmol/L (96-109); Chol/HDL Ratio 3.23 Ratio; Globulin 2.6 g/dL (1.6-3.3); Glucose 134 mg/dL (70-110); Iron 97 UG/DL (65-175); LDL Cholesterol,Calculated 64.1 mg/dL (0.0-131.0); Phosphorus 2.8 mg/dL (2.4-5.1); Potassium 4.3 mmol/L (3.5-5.5); Sodium 141 mmol/L (135-145); Total Bilirubin 0.4 mg/dL (0.3-1.2); Total Iron Binding Capacity 314 UG/DL (228-460); Total Protein 6.3 g/dL (6.2-8.2); Uric Acid 6.6 mg/dL (3.7-8.7)
== END | disposition home or self-care (01) ==
LOC: LABWHC1 12:06
PROVIDERS: ATTEND Internal Medicine
DX: E11.9 Type 2 diabetes mellitus without complications (principal); E55.9 Vitamin D deficiency, unspecified; N20.0 Calculus of kidney; D64.9 Anemia, unspecified
CPT/HCPCS: 36415; 80053; 80061; 82306; 82607; 82746; 83540; 83550; 83735; 84100; 84443; 84550; 85025

== ENCOUNTER → 2023-07-25 | Outpatient (CLI) | payer MEDICARE ==
--- NOTE | 2023-07-25 14:09 | FL ---
EXAMINATION TYPE: FL small bowel follow through DATE OF EXAM: 07/25/2023 CLINICAL HISTORY: Dysphasia TECHNIQUE: A single contrast small bowel follow through is performed utilizing barium. COMPARISON: None FINDINGS: Rn Chemical Dependency image of the abdomen shows no gross abnormality. Hypertrophic and degenerative jackson e of the spine. Bilateral hip arthropathy. The small bowel study shows normal on delayed to the colon 2 hours 30 minutes. No evidence of transit ion point. The bowel does not appear to be overtly dilated. Findings suggest prior right colon surger y. There is a normal mucosal fold pattern throughout the small bowel. There is no evidence of any st ricture or filling defect noted. A single image of the esophagus demonstrate what appears to be tertiary contractions. On these images of the abdomen as part of the small bowel follow-through findings suggest prior Ny-en-Y surgery. 19 images submitted. No fluoroscopy time. Exam was a small bowel follow-through. IMPRESSION: 1. Mildly delayed transit time on small bowel follow through (2 hours 30 minutes). No diagnostic evid ence of obstruction. 2. Correlate for previous right colonic surgery. 3. Correlate for esophageal dysmotility.
== END | disposition home or self-care (01) ==
LOC: RADFLMAIN 08:47
PROVIDERS: ATTEND Surgery
DX: R13.10 Dysphagia, unspecified (principal)
CPT/HCPCS: 74250

== ENCOUNTER → 2023-09-30 | Outpatient (CLI) | payer MEDICARE ==
--- NOTE | 2023-09-30 12:28 | XR ---
EXAMINATION TYPE: XR chest 2V DATE OF EXAM: 09/30/2023 12:17 PM CLINICAL INDICATION:Male, 77 years old with history of R0600 DYSPNEA, UNSPECIFIED; [facility] COMPARISON: Chest radiographs from 05/28/2019. TECHNIQUE: XR chest 2V Frontal and lateral views of the chest. FINDINGS: Lungs/Pleura: Prominent interstitial lung markings are seen scattered throughout the lungs. No eviden ce of focal consolidation, pneumothorax or pleural effusion. Pulmonary vascularity: Unremarkable. Heart/mediastinum: Cardiomediastinal silhouette is unremarkable. Musculoskeletal: No acute osseous pathology. IMPRESSION: Low lung volumes with interstitial lung disease changes without acute pulmonary process.
== END | disposition home or self-care (01) ==
LOC: RADXRMAIN 11:48
PROVIDERS: ATTEND Internal Medicine
DX: J84.9 Interstitial pulmonary disease, unspecified (principal); R06.00 Dyspnea, unspecified
CPT/HCPCS: 71046

== ENCOUNTER → 2023-10-28 | Outpatient (CLI) | payer MEDICARE | END | disposition home or self-care (01) | LOC: RADCTMAIN 11:45 | PROVIDERS: ATTEND Internal Medicine | DX: Z53.9 Procedure and treatment not carried out, unspecified reason (principal) ==

== ENCOUNTER 2023-11-17 01:33 | Observation (INO) | payer MEDICARE ==
--- NOTE | 2023-11-17 01:53 | ED ---
Chest Pain HPI - General Chief Complaint: Chest Pain Stated Complaint: Chest Pain, Difficulty Breathing Time Seen by Provider: 11/17/23 01:43 Source: patient Mode of arrival: wheelchair Limitations: no limitations - History of Present Illness Initial Comments: 77-year-old male presenting to the ED with a chief complaint of chest pain. Patient states he was sitting on the couch when he started to experience pain in the middle of his chest approximately an hour ago. Patient reports pain is pounding in nature. Patient reports at onset of pain became sweaty with some nausea. Patient reports chronic shortness of breath secondary to history of pulmonary hypertension however reports that it has not been worse than usual. No fever or chills. No other complaints at this time. - Related Data Home Medications Medication Instructions Recorded Confirmed Acetaminophen Tab [Tylenol Tab] 1,000 mg PO BID 07/22/16 06/03/22 Multivitamins, Thera [Multivitamin] 2 tab PO DAILY 07/22/16 06/03/22 Stool Softener 3 tab PO QAM 07/22/16 06/03/22 Tamsulosin HCl [Flomax] 0.4 mg PO BID 07/22/16 06/03/22 diazePAM [Valium] 5 mg PO HS 07/22/16 06/03/22 Apixaban [Eliquis] 5 mg PO BID 02/13/21 06/03/22 Cyanocobalamin (Vitamin B-12) 1,000 mcg PO TH 02/13/21 06/03/22 [Vitamin B-12] Ferrous Sulfate [Feosol] 325 mg PO BID 02/13/21 06/03/22 Pantoprazole [Protonix] 40 mg PO BID 02/13/21 06/03/22 Furosemide [Lasix] 20 mg PO BID 05/13/22 06/03/22 Gabapentin 600 mg PO HS 05/13/22 06/03/22 Metoprolol Tartrate 25 mg PO BID 05/13/22 06/03/22 Potassium Citrate [Potassium 2 tab PO QID 05/13/22 06/03/22 Citrate ER] Vit C/E/Zn/Coppr/Lutein/Zeaxan 1 cap PO DAILY 05/13/22 06/03/22 [Preservision Areds 2 Softgel] Allergies Allergy/AdvReac Type Severity Reaction Status Date / Time codeine Allergy Dyspnea Verified 11/17/23 01:35 Review of Systems ROS Statement: Those systems with pertinent positive or pertinent negative responses have been documented in the HPI. ROS Other: All systems not noted in ROS Statement are negative. Past Medical History Past Medical History: Cancer, GI Bleed, Osteoarthritis (OA), Prostate Disorder, Pulmonary Embolus (PE), Sleep Apnea/CPAP/BIPAP Additional Past Medical History / Comment(s): HX: SWELLING IN LEGS. USES CPAP. Recent bronchitis. Hypoglycemia.procedure, knee problems, chronic anemIA req uiring blood transfusions. BONE MARROW BX-NO RESULTS (SINCE HANDS AND FEET NUMB). 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 [place] en [place]- gastric surgery. Knee replacement rt x2, LEFT KNEE REPLACEMENT X 2. ORIF RIGHT FEMUR. Cardiac ABLATION Past Anesthesia/Blood Transfusion Reactions: No Reported Reaction Past Psychological History: No Psychological Hx Reported Smoking Status: Never smoker Past Alcohol Use History: None Reported Past Drug Use History: None Reported - Past Family History Mother Family Medical History: No Reported History General Exam Limitations: no limitations General appearance: alert, in no apparent distress Eye exam: Present: normal appearance Neck exam: Present: normal inspection Respiratory exam: Present: decreased breath sounds Cardiovascular Exam: Present: regular rate GI/Abdominal exam: Present: soft. Absent: distended, tenderness, guarding, rebound, rigid Neurological exam: Present: alert, oriented X3 Skin exam: Present: warm, dry Course Vital Signs 11/17/23 11/17/23 11/17/23 01:35 02:02 02:20 Temperature 98.1 F Pulse Rate 82 81 80 Respiratory 25 H 18 18 Rate Blood Pressure 129/69 105/56 94/47 O2 Sat by Pulse 93 L 95 95 Oximetry Chest Pain MDM - MDM Was pt. sent in by a medical professional or institution (, PA, SOFTWARE CLERK, urgent care, hospital, or [place] health care facility...) When possible be specific @ -No Did you speak to anyone other than the patient for history (EMS, parent, family, police, friend...)? What history was obtained from this source @ -No Did you review nursing and triage notes (agree or disagree)? Why? @ -I reviewed and agree with nursing and triage notes Were old charts reviewed (outside hosp., previous admission, EMS record, old EKG, old radiological studies, urgent care reports/EKG's, [place] health care facility records)? Report findings @ -No old charts were reviewed Differential Diagnosis (chest pain, altered mental status, abdominal pain women, abdominal pain men, vaginal bleeding, weakness, fever, dyspnea, syncope, headache, dizziness, GI bleed, back pain, seizure, CVA, palpatations, mental health, musculoskeletal)? @ -Differential. Provided aspirin and nitro at this time which resolved.: Stable Angina, Unstable Angina, STEMI, NSTEMI Aortic Dissection, Pneumothorax, Musculoskeletal, Esophageal Spasm GERD, Cholecystitis, Pancreatitis, Zoster, this is not meant to be an all-inclusive list. EKG interpreted by me (3pts min.). @ -EKG interpreted by me showing nonspecific findings in the rate of 77 bpm. OH 160, QRS 90, QT/QTc 383/415. X-rays interpreted by me (1pt min.). @ -Chest x-ray interpreted me which revealed no evidence of acute finding. CT interpreted by me (1pt min.). @ -None done U/S interpreted by me (1pt. min.). @ -None done What testing was considered but not performed or refused? (CT, X-rays, U/S, labs)? Why? @ -None What meds were considered but not given or refused? Why? @ -None Did you discuss the management of the patient with other professionals (professionals i.e. , PA, SOFTWARE CLERK, lab, RT, psych nurse, case management social worker, project facilitator, teacher, staff weapons officer, rn field case manager)? Give summary @ -Case discussed with Dr. Donovan, who accepts admission. Was smoking cessation discussed for >3mins.? @ -No Was critical care preformed (if so, how long)? @ -No Were there social determinants of health that impacted care today? How? (Homelessness, low income, unemployed, alcoholism, drug addiction, transportation, low edu. Level, literacy, decrease access to med. care, fci, rehab)? @ -No Was there de-escalation of care discussed even if they declined (Discuss DNR or withdrawal of care, Hospice)? DNR status @ -No What co-morbidities impacted this encounter? (DM, HTN, Smoking, COPD, CAD, Cancer, CVA, ARF, Chemo, Hep., AIDS, mental health diagnosis, sleep apnea, morbid obesity)? @ -None Was patient admitted / discharged? Hospital course, mention meds given and route, prescriptions, significant lab abnormalities, going to OR and other pertinent info. @ -Admission 77-year-old male presenting to the ED with chest pain. Provided aspirin and nitro here. At this time reports symptoms are resolved. Laboratory studies reviewed. Initial troponin undetectable. Chest x-ray revealed no evidence of acute finding. EKG showed sinus rhythm with nonspecific findings. Patient will be admitted to observation with consult to cardiology to rule out ACS with serial troponins. Undiagnosed new problem with uncertain prognosis? @ -No Drug Therapy requiring intensive monitoring for toxicity (Heparin, Nitro, Insulin, Cardizem)? @ -No Were any procedures done? @ -No Diagnosis/symptom? @ -Chest pain Acute, or Chronic, or Acute on Chronic? @ -Acute Uncomplicated (without systemic symptoms) or Complicated (systemic symptoms)? @ -Complicated Side effects of treatment? @ -No Exacerbation, Progression, or Severe Exacerbation? @ -No Poses a threat to life or bodily function? How? (Chest pain, [place], [place], pneumonia, PE, COPD, DKA, ARF, appy, cholecystitis, CVA, Diverticulitis, Homicidal, Suicidal, threat to staff... and all critical care pts) @ -Possibly, however unlikely at this time. Disposition Clinical Impression: Chest pain Disposition: ADMITTED IP TO THIS [facility] Condition: Fair Referrals: Piotr Lacy DO [Primary Care Provider] - 1-2 days Time of Disposition: 03:30
[2023-11-17] MEDS: ASPIRIN 81 MG PO STA (02:00)
[2023-11-17] MEDS: NITROGLYCERIN SL TABS 0.4 MG TAB SUBLINGUAL STA (02:04)
[2023-11-17 02:17] LABS: Basophils % (A) 0 %; Eosinophils # (A) 0.2 k/uL (0-0.7); Eosinophils % (A) 2 %; HCT 47.6 % (39.0-53.0); HGB 15.1 gm/dL (13.0-17.5); Lymphocytes # (A) 1.8 k/uL (1.0-4.8); Lymphocytes % (A) 15 %; MCH 32.1 pg (25.0-35.0); MCHC 31.7 g/dL (31.0-37.0); MCV 101.3 fL (80.0-100.0); Macrocytosis Slight; Mean Platelet Volume 8.4; Monocytes # (A) 0.6 k/uL (0-1.0); Monocytes % (A) 5 %; Neutrophils # (A) 8.9 k/uL (1.3-7.7); Neutrophils % (A) 77 %; Platelet Count 253 k/uL (150-450); RDW 15.2 % (11.5-15.5); WBC 11.6 k/uL (3.8-10.6)
[2023-11-17 02:25] LABS: Partial Thromboplastin Time 24.9 sec (22.0-30.0); Prothrombin Time 10.7 sec (10.0-12.5)
--- NOTE | 2023-11-17 02:33 | XR ---
EXAM: XR Chest, 2 Views CLINICAL HISTORY: Chest Pain TECHNIQUE: Frontal and lateral views of the chest. COMPARISON: 05/28/19 FINDINGS: Lungs: Small amount of linear opacities over the right upper and middle lung zone and left lower lung zone likely represent atelectasis and/or scarring, similar on the prior study. Pleural space: Unremarkable. Mediastinum: Unremarkable. Normal mediastinal contour. Bones/joints: No acute findings. IMPRESSION: No acute findings or substantial change
[2023-11-17 02:44] LABS: Chloride 113 mmol/L (98-107)
[2023-11-17 02:46] LABS: ALT 14 U/L (4-49); AST 18 U/L (17-59); African American GFR (CKD) >90 (>60 ml/min/1.73 sqM); Albumin 3.8 g/dL (3.5-5.0); Alkaline Phosphatase 106 U/L (38-126); Anion Gap 6 mmol/L; Blood Urea Nitrogen 20 mg/dL (9-20); Calcium 8.9 mg/dL (8.4-10.2); Carbon Dioxide 22 mmol/L (22-30); Glucose 143 mg/dL (74-99); Non-African American GFR(CKD) 86 (>60 ml/min/1.73 sqM); Potassium 4.3 mmol/L (3.5-5.1); Sodium 141 mmol/L (137-145); Total Bilirubin 0.5 mg/dL (0.2-1.3); Total Protein 6.6 g/dL (6.3-8.2)
[2023-11-17] MEDS ORDERED: NITROGLYCERIN SL TABS 0.4 MG TAB SUBLINGUAL PRN ×2 (03:31→12:15)
[2023-11-17] MEDS ORDERED: ONDANSETRON 4 MG/2 ML VIAL IVP PRN (03:32)
--- NOTE | 2023-11-17 05:02 | P.HPIM ---
History of Present Illness H&P Date: 11/17/23 Chief Complaint: chest pain The patient is a 77 y.o male with a history of pulmonary fibrosis who s here because of chest pain. The patient states that he has constant SOB limiting his activity to only a few feet. He states that he as feeling his normal self went to bed and awoke with chest pain rated at 8/10 with associated diaphoresis. The patient asked his to bring him to the ED. He states that the pain lasted on his arrival to the ED and after receiving nitro. The patient states that his pain has now resolved. The patient a T of 98.1, P 82, RR 25, BP 129/69 and 93 % on RA. His initial troponin was , 0.012 he was hospitalized for further workup and management Review of Systems All systems: negative Cardiovascular: Reports chest pain, Reports decreased exercise tolerance, Reports dyspnea on exertion Past Medical History Past Medical History: Cancer, GI Bleed, Osteoarthritis (OA), Prostate Disorder, Pulmonary Embolus (PE), Sleep Apnea/CPAP/BIPAP Additional Past Medical History / Comment(s): HX: SWELLING IN LEGS. USES CPAP. Recent bronchitis. Hypoglycemia.procedure, knee problems, chronic anemIA requiring blood transfusions. BONE MARROW BX-NO RESULTS (SINCE HANDS AND FEET NUMB). 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 [place] en [place]- gastric surgery. Knee replacement rt x2, LEFT KNEE REPLACEMENT X 2. ORIF RIGHT FEMUR. Cardiac ABLATION Past Anesthesia/Blood Transfusion Reactions: No Reported Reaction Past Psychological History: No Psychological Hx Reported Smoking Status: Never smoker Past Alcohol Use History: None Reported Past Drug Use History: None Reported - Past Family History Mother Family Medical History: No Reported History Medications and Allergies Home Medications Medication Instructions Recorded Confirmed Type Acetaminophen Tab [Tylenol Tab] 1,000 mg PO BID 07/22/16 06/03/22 History Multivitamins, Thera [Multivitamin] 2 tab PO DAILY 07/22/16 06/03/22 History Stool Softener 3 tab PO QAM 07/22/16 06/03/22 History Tamsulosin HCl [Flomax] 0.4 mg PO BID 07/22/16 06/03/22 History diazePAM [Valium] 5 mg PO HS 07/22/16 06/03/22 History Apixaban [Eliquis] 5 mg PO BID 02/13/21 06/03/22 History Cyanocobalamin (Vitamin B-12) 1,000 mcg PO TH 02/13/21 06/03/22 History [Vitamin B-12] Ferrous Sulfate [Feosol] 325 mg PO BID 02/13/21 06/03/22 History Pantoprazole [Protonix] 40 mg PO BID 02/13/21 06/03/22 History Furosemide [Lasix] 20 mg PO BID 05/13/22 06/03/22 History Gabapentin 600 mg PO HS 05/13/22 06/03/22 History Metoprolol Tartrate 25 mg PO BID 05/13/22 06/03/22 History Potassium Citrate [Potassium 2 tab PO QID 05/13/22 06/03/22 History Citrate ER] Vit C/E/Zn/Coppr/Lutein/Zeaxan 1 cap PO DAILY 05/13/22 06/03/22 History [Preservision Areds 2 Softgel] Allergies Allergy/AdvReac Type Severity Reaction Status Date / Time codeine Allergy Dyspnea Verified 11/17/23 01:35 Physical Exam Vitals: Vital Signs Temp Pulse Resp BP Pulse Ox 11/17/23 04:19 89 18 116/72 94 L 11/17/23 02:20 80 18 94/47 95 11/17/23 02:02 81 18 105/56 95 11/17/23 01:35 98.1 F 82 25 H 129/69 93 L Intake and Output 11/16/23 11/16/23 11/17/23 14:59 22:59 06:59 Other: Weight 185.066 kg - Constitutional General appearance: obese - Respiratory Respiratory: bilateral: diminished - Cardiovascular Rhythm: regular - Gastrointestinal General gastrointestinal: normal bowel sounds - Integumentary Integumentary: normal turgor - Neurologic Neurologic: CNII-XII intact - Musculoskeletal Musculoskeletal: strength equal bilaterally - Psychiatric Psychiatric: A&O x's 3 Results CBC & Chem 7: 11/17/23 01:52 11/17/23 01:52 Labs: Abnormal Lab Results - Last 24 Hours (Table) 11/17/23 11/17/23 Range/Units 01:52 01:52 WBC 11.6 H (3.8-10.6) k/uL MCV 101.3 H (80.0-100.0) fL Neutrophils # 8.9 H (1.3-7.7) k/uL Chloride 113 H (98-107) mmol/L Glucose 143 H (74-99) mg/dL Abdominal x-ray: report reviewed Assessment and Plan (1) Chest pain Narrative/Plan: trend enzymes, initial negative, Morphine, Nitro, ASA, Oxygen consult Cardiology Current Visit: Yes Status: Acute Code(s): R07.9 - CHEST PAIN, UNSPECIFIED SNOMED Code(s): 16134496 (2) Pulmonary fibrosis Narrative/Plan: chronic dyspnea Current Visit: Yes Status: Acute Code(s): J84.10 - PULMONARY FIBROSIS, UNSP ECIFIED SNOMED Code(s): 32998623 Plan: Serial enzymes, continue Eliquis, home meds, Cardiology consult
--- NOTE | 2023-11-17 10:24 | P.CRDCN ---
History of Present Illness History of present illness: HISTORY OF PRESENT ILLNESS: This is a 77-year-old male with a past medical history significant for diabetes, SVT, hypertension, and hyperlipidemia. Patient used to follow in the office with Dr. Tilley but has not been seen since 2017. We have been asked to see the patient in consultation for chest pain. Patient examined at the bedside. Patient states that he was at home when he was awoken from sleep with chest discomfort. He states that he was diaphoretic and felt palpitations. He states the pain was across his entire chest. He states he did take nitro with relief of the discomfort. He denies having any chest pain or pressure this morning the time of examination. 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 The patient also reports he is not very active at baseline and uses a walker to ambulate. DIAGNOSTICS: - EKG reveals sinus mechanism with nonspecific ST-T wave changes. - Chest xray negative for acute process. - Laboratory data: WBC 11.6. Hemoglobin 15.1. Platelet count 253. Sodium 141. Potassium 4.3. BUN 20. Creatinine 0.83. Troponin negative x 1 - Current home cardiac medications include carvedilol 6.25 mg twice a day, Eliquis 5 mg twice a day, Lasix 20 mg twice a day, Lipitor 20 mg at night. REVIEW OF SYSTEMS: At the time of my exam: CONSTITUTIONAL: Denies fever or chills. HEENT: Denies blurred vision, vision changes, or eye pain. Denies hemoptysis CARDIOVASCULAR: Denies chest pain. Denies orthopnea. Denies PND. Denies palpitations RESPIRATORY: Reports shortness of breath. GASTROINTESTINAL: Denies abdominal pain. Denies nausea or vomiting. HEMATOLOGIC: Denies bleeding disorders. GENITOURINARY: Denies any blood in urine. SKIN: Denies pruitis. Denies rash. PHYSICAL EXAM: VITAL SIGNS: Reviewed. GENERAL: Well-developed in no acute distress. HEENT: Head is normocephalic. Pupils are equal, round. Sclerae anicteric. Mucous membranes of the mouth are moist. Neck supple. No JVD or thyromegaly LUNGS: Respirations even and unlabored. Lungs essentially clear to auscultation bilaterally. HEART: Regular rate and rhythm. S1 and S2 heard. ABDOMEN: Soft. Nondistended. Nontender. EXTREMITIES: Normal range of motion. No clubbing or cyanosis. Peripheral pulses intact. No lower extremity edema NEUROLOGIC: Awake and alert. Oriented x 3. ASSESSMENT: Chest pain, troponin negative x 1 Hypertension Hyperlipidemia Diabetes Diabetic neuropathy History of SVT with previous ablation History of pulmonary embolism, on Eliquis outpatient Morbid obesity: BMI 49.7 Chronic dyspnea secondary to agent orange exposure per patient PLAN: Trend troponins Obtain 2D echo to assess cardiac structure and function Resume home cardiac medications Hold Eliquis pending further cardiac workup If second troponin is negative, patient will undergo Lexiscan stress test today Further recommendations pending patient course Nurse practitioner note has been reviewed by physician. Signing provider agrees with the documented findings, assessment, and plan of care documented by PASSENGER CAR UPHOLSTERER APPRENTICE as a scribe. Past Medical History Past Medical History: Cancer, GI Bleed, Osteoarthritis (OA), Prostate Disorder, Pulmonary Embolus (PE), Sleep Apnea/CPAP/BIPAP Additional Past Medical History / Comment(s): HX: SWELLING IN LEGS. USES CPAP. Recent bronchitis. Hypoglycemia.procedure, knee problems, chronic anemIA requiring blood transfusions. BONE MARROW BX-NO RESULTS (SINCE HANDS AND FEET NUMB). 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 [place] en [place]- gastric surgery. Knee replacement rt x2, LEFT KNEE REPLACEMENT X 2. ORIF RIGHT FEMUR. Cardiac ABLATION Past Anesthesia/Blood Transfusion Reactions: No Reported Reaction Past Psychological History: No Psychological Hx Reported Smoking Status: Never smoker Past Alcohol Use History: None Reported Past Drug Use History: None Reported - Past Family History Mother Family Medical History: No Reported History Medications and Allergies Home Medications Medication Instructions Recorded Confirmed Type Acetaminophen Tab [Tylenol Tab] 1,000 mg PO BID PRN 07/22/16 11/17/23 History Stool Softener 2 - 3 tab PO QAM 07/22/16 11/17/23 History Tamsulosin HCl [Flomax] 0.4 mg PO BID 07/22/16 11/17/23 History diazePAM [Valium] 5 mg PO HS PRN 07/22/16 11/17/23 History Apixaban [Eliquis] 5 mg PO BID 02/13/21 11/17/23 History Cyanocobalamin (Vitamin B-12) 1,000 mcg PO AC-BRKFST 02/13/21 11/17/23 History [Vitamin B-12] Furosemide [Lasix] 20 mg PO BID 05/13/22 11/17/23 History Vit C/E/Zn/Coppr/Lutein/Zeaxan 1 cap PO BID 05/13/22 11/17/23 History [Preservision Areds 2 Softgel] Atorvastatin [Lipitor] 20 mg PO HS 11/17/23 11/17/23 History Calcium Citrate Er 20 meq PO QID 11/17/23 11/17/23 History Celebrate Multi Vitamin 1 tab PO BID 11/17/23 11/17/23 History DULoxetine HCL [Cymbalta] 20 mg PO DAILY 11/17/23 11/17/23 History Ergocalciferol [Vitamin D2 (1250 1,250 mcg PO TU 11/17/23 11/17/23 History Mcg = 36670 Iu)] Ferrous Sulfate Er 324mg 324 mg PO HS 11/17/23 11/17/23 History Fluticasone Nasal [place] [Flonase 1 spray EA NOSTRIL BID 11/17/23 11/17/23 History Nasal [place]] Multivitamin [Multivitamins Adult 1 tab PO BID 11/17/23 11/17/23 History Gummies] Omeprazole [PriLOSEC] 40 mg PO DAILY 11/17/23 11/17/23 History Pramipexole Di-HCl [Mirapex] 1.5 mg PO HS 11/17/23 11/17/23 History Sucralfate [Carafate] 1 gm PO ACHS 11/17/23 11/17/23 History carvediloL [Coreg] 6.25 mg PO BID 11/17/23 11/17/23 History metFORMIN HCL [Glucophage] 500 mg PO DAILY 11/17/23 11/17/23 History Allergies Allergy/AdvReac Type Severity Reaction Status Date / Time codeine Allergy Dyspnea Verified 11/17/23 07:06 Physical Exam Vitals: Vital Signs Temp Pulse Pulse Resp BP BP Pulse Ox 11/17/23 08:00 97.8 F 75 17 117/72 95 11/17/23 06:09 56 L 18 101/62 95 11/17/23 04:19 89 18 116/72 94 L 11/17/23 02:20 80 18 94/47 95 11/17/23 02:02 81 18 105/56 95 11/17/23 01:35 98.1 F 82 25 H 129/69 93 L Intake and Output 11/16/23 11/17/23 11/17/23 22:59 06:59 14:59 Other: Weight 185.066 kg Results 11/17/23 01:52 11/17/23 01:52 Cardiac Enzymes 11/17/23 11/17/23 Range/Units 01:52 01:52 AST 18 (17-59) U/L Troponin I <0.012 (0.000-0.034) ng/mL Coagulation 11/17/23 Range/Units 01:52 PT 10.7 (10.0-12.5) sec APTT 24.9 (22.0-30.0) sec CBC 11/17/23 Range/Units 01:52 WBC 11.6 H (3.8-10.6) k/uL RBC 4.70 (4.30-5.90) m/uL Hgb 15.1 (13.0-17.5) gm/dL Hct 47.6 (39.0-53.0) % Plt Count 253 (150-450) k/uL Comprehensive Metabolic Panel 11/17/23 Range/Units 01:52 Sodium 141 (137-145) mmol/L Potassium 4.3 (3.5-5.1) mmol/L Chloride 113 H (98-107) mmol/L Carbon Dioxide 22 (22-30) mmol/L BUN 20 (9-20) mg/dL Creatinine 0.83 (0.66-1.25) mg/dL Glucose 143 H (74-99) mg/dL Calcium 8.9 (8.4-10.2) mg/dL AST 18 (17-59) U/L ALT 14 (4-49) U/L Alkaline Phosphatase 106 (38-126) U/L Total Protein 6.6 (6.3-8.2) g/dL Albumin 3.8 (3.5-5.0) g/dL Current Medications Generic Name Dose Route Start Last Admin Trade Name Freq PRN Reason Stop Dose Admin Nitroglycerin 0.4 mg 11/17/23 03:31 Nitroglycerin Sl Tabs 0.4 Mg Tab SUBLINGUAL Q5M PRN Chest Pain Ondansetron HCl 4 mg 11/17/23 03:32 Ondansetron 4 Mg/2 Ml Vial IVP Q8HR PRN Nausea And Vomiting Intake and Output 11/16/23 11/17/23 11/17/23 22:59 06:59 14:59 Other: Weight 185.066 kg 11/17/23 01:52 11/17/23 01:52
[2023-11-17] MEDS ORDERED: AMINOPHYLLINE 500 MG/20 ML VIAL IV PRN (10:26)
[2023-11-17] MEDS ORDERED: REGADENOSON 0.4 MG/5 ML SYRINGE IV PRN (10:26)
[2023-11-17] MEDS ORDERED: CAFFEINE CITRATE 60 MG/3 ML VIAL IV PRN (10:26)
[2023-11-17] MEDS: FUROSEMIDE 20 MG TAB PO SCH (11:38)
[2023-11-17] MEDS: carvediloL 6.25 MG TAB PO SCH (11:38)
--- NOTE | 2023-11-17 12:14 | CA ---
Transthoracic Echo Report Name: Donovan Angela Age: 77 Gender: M : 1945 Exam Date: 11/17/2023 09:14 Exam Location: [facility] Ht (in): 76 Wt (lb): 408 Ordering Physician: Jessica Delgado Attending/Referring Phys: [id number], Danny Instrumentation Engineer Kenyatta Sevilla RDCS Procedure CPT: Indications: LV function, CP Cardiac Hx: Technical Quality: Very technically difficult study Contrast 1: Definity Total Dose (mL): 2 Contrast 2: Total Dose (mL): MEASUREMENTS (Male / Female) Normal Values 2D ECHO LV Diastolic Volume MOD BP 103.8 cm??? 67 - 155 / 56 - 104 cm??? LV Systolic Volume MOD BP 33.5 cm??? 22 - 58 / 19 - 49 cm??? LV Ejection Fraction MOD BP 67.8 % >= 55 % LV Cardiac Index MOD BP 1694.5 cm???/min???m??? LV Diastolic Volume MOD 4C 97.4 cm??? LV Systolic Volume MOD 4C 31.3 cm??? LV Ejection Fraction MOD 4C 67.8 % LV Cardiac Index MOD 4C 1590.9 cm???/min???m??? LV Diastolic Length 4C 8.6 cm LV Systolic Length 4C 7.6 cm LV Diastolic Volume MOD 2C 104.4 cm??? LV Systolic Volume MOD 2C 32.4 cm??? LV Ejection Fraction MOD 2C 69.0 % LV Cardiac Index MOD 2C 1734.0 cm???/min???m??? LV Diastolic Length 2C 9.2 cm LV Systolic Length 2C 6.9 cm DOPPLER AV Peak Velocity 87.8 cm/s AV Peak Gradient 3.1 mmHg AV Mean Velocity 59.5 cm/s AV Mean Gradient 1.6 mmHg AV Velocity Time Integral 17.8 cm LVOT Peak Velocity 70.1 cm/s LVOT Peak Gradient 2.0 mmHg LVOT Velocity Time Integral 13.9 cm MV Area PHT 5.4 cm??? Mitral E Point Velocity 45.7 cm/s Mitral A Point Velocity 51.8 cm/s Mitral E to A Ratio 0.9 MV Deceleration Time 140.9 ms FINDINGS Left Ventricle Left ventricular ejection fraction is estimated at 60-65 %. Left ventricular cavity size normal. No obvious regional wall motion abnormalities. Right Ventricle Right ventricle not well visualized. Right Atrium Right atrium not well visualized. Left Atrium Left atrium not well visualized. Mitral Valve Mitral valve not well visualized. No mitral stenosis, regurgitation or prolapse. Aortic Valve Aortic valve not well visualized. No aortic valve stenosis or regurgitation. Tricuspid Valve Tricuspid valve not well visualized. No tricuspid stenosis. No tricuspid regurgitation. Pulmonic Valve Pulmonic valve not well visualized. Pericardium No pericardial effusion. Aorta Aortic root and proximal ascending aorta not well visualized. CONCLUSIONS Technically difficult study for interpretation Normal LV systolic function Poorly visualized intracardiac valves Previewed by: Dr. Alberto Solorio MD (Electronically Signed) Final Date: 17 November 2023 12:13
[2023-11-17] MEDS ORDERED: ALPRAZolam 0.25 MG TAB PO PRN (12:15)
[2023-11-17] MEDS ORDERED: ALPRAZolam 0.5 MG TAB PO PRN (12:15)
[2023-11-17] MEDS: ATORVASTATIN 20 MG TAB PO SCH (20:26)
[2023-11-18] MEDS: SODIUM CHLORIDE 0.9% 1,000 ML in EMPTY BAG 1 BAG IV SCH ×2 (03:57→20:26)
[2023-11-18] MEDS: ATORVASTATIN 80 MG TAB PO ONE (05:15)
[2023-11-18] MEDS: ASPIRIN 325 MG TAB PO ONE (05:15)
[2023-11-18] MEDS ORDERED: HEPARIN SODIUM,PORCINE (1 ML) 2,500 UNIT in SODIUM CHLORIDE 0.9% 250 ML IRRIGATION PRN (07:00)
[2023-11-18] MEDS ORDERED: HEPARIN SODIUM,PORCINE 10,000 UNIT in SODIUM CHLORIDE 0.9% 1,000 ML IRRIGATION PRN (07:00)
[2023-11-18] MEDS: SODIUM CHLORIDE 0.9% 500 ML IV ONE (09:48)
[2023-11-18] MEDS ORDERED: HEPARIN SODIUM 1,000 UN/ML (10ML VL) ONE (10:02)
[2023-11-18] MEDS ORDERED: VERAPAMIL 2.5 MG/ML 2 ML AMP ONE (10:02)
[2023-11-18] MEDS ORDERED: LIDOCAINE 1% INJ 10MG/ML (20 ML MDV) ONE (10:02)
[2023-11-18] MEDS: LIDOCAINE 1% INJ 10MG/ML (20 ML MDV) SQ ONE (10:29)
[2023-11-18] MEDS: MIDAZOLAM 2 MG/2 ML VIAL IVP ONE (10:29)
[2023-11-18] MEDS: HEPARIN SODIUM 1,000 UN/ML (10ML VL) IVP ONE ×2 (10:31→10:39)
[2023-11-18] MEDS: VERAPAMIL 2.5 MG/ML 4 ML VIAL INTRAARTER ONE (10:31)
[2023-11-18] MEDS ORDERED: niCARdipine 25 MG/10 ML VIAL ONE (10:42)
[2023-11-18] MEDS ORDERED: TICAGRELOR 90 MG TAB ONE (10:45)
[2023-11-18] MEDS: TICAGRELOR 90 MG TAB PO ONE (10:47)
[2023-11-18] MEDS: IOPAMIDOL-370 200ML BTL INJ ONE (11:10)
[2023-11-18] MEDS ORDERED: ZOLPIDEM 5 MG TAB PO PRN (11:13)
[2023-11-18] MEDS ORDERED: NITROGLYCERIN SL TABS 0.4 MG TAB SUBLINGUAL PRN (11:13)
[2023-11-18] MEDS ORDERED: MAG HYDROX/AL HYDROX/SIMETH 30 ML CUP PO PRN (11:13)
[2023-11-18] MEDS ORDERED: RX INFO: IV CONTRAST WAS GIVEN 1 EACH MISC MISCELLANE PRN (11:13)
[2023-11-18] MEDS ORDERED: ATROPINE SULFATE 0.1 MG/ML 10ML SYRINGE IV PRN (11:13)
--- NOTE | 2023-11-18 11:17 | P.PCN ---
Date of Procedure: 11/18/23 Operative Findings: CARDIAC CATHETERIZATION AND PERCUTANEOUS CORONARY INTERVENTION PERFORMING PHYSICIAN: Alberto Solorio MD, [facility] PROCEDURE PERFORMED: 1. Selective right and left coronary angiogram 2. Successful stenting of mid LAD using 4.0 x 23 mm Xience SLOAN with an excellent angiographic results 3. Adjunctive use of IVUS and Dobler wire 4. Ultrasound-guided access of the right radial artery INDICATION: Chest discomfort concerning for unstable angina COMPLICATION: None APPROACH: Right radial artery LEVEL OF SEDATION: Moderate with the sedation time off 46 minutes PROCEDURE DESCRIPTION: After obtaining informed consent the patient was brought to the cardiac Technologies Division Chair where the right radial artery was cannulated using micropuncture technique under ultrasound guidance and micropuncture wire passed easily then I placed a 6 [place] 11 cm sheath at the right radial artery with selective right and left coronary angiogram performed using JR4 and JL 3.5 catheters. After that I decided to intervene on the LAD after performing Dobler wire measurement. Anticoagulation was initiated using heparin with continuous ACT monitoring. Subsequently after zeroing the Doppler wire and equalizing between the Doppler wire and guiding catheter which was JL 4 guiding catheter the left main was engaged and subsequently the LAD was wired. We did do Dobler wire measurement using IFR and that came into at 0.74. Subsequently intravascular ultrasound was performed and showed a diameter around 4 mm and the artery was not very calcified. Predilatation was performed using 3.5 mm balloon before I deployed 4.0 x 23 mm stent which was postdilated using 4.5 mm balloon after IVUS was performed. Final angiogram showed excellent angiographic results and the procedure was completed with no complication SELECTIVE CORONARY ANGIOGRAM: The right coronary artery: Large-caliber vessel and a dominant vessel and appears to be angiographically normal Left main: Is angiographically normal The left circumflex: Large caliber vessel nondominant vessel and appears to be angiographically normal with large OM The left anterior descending artery: The mid LAD has intermediate to severe lesion documented to be flow-limiting by Doppler wire CONCLUSION: Severe disease involving the mid LAD. I did perform successful PCI of the LAD as described above POSTPROCEDURE MANAGEMENT: 1. Dual antiplatelet therapy using aspirin and Brilinta for at least 6 month 2. Aggressive cholesterol control 3. Follow-up with the patient
[2023-11-18] MEDS ORDERED: DEXTROSE 50% SYRINGE 50 ML IVP PRN ×2 (11:58)
--- NOTE | 2023-11-18 12:02 | P.PN ---
Subjective Progress Note Date: 11/18/23 77 year old M with PMH of pulmonary fibrosis, DM, BPH, PE, HLD, HTN, sleep apnea presents to the ED for chest tightness. In the ED, he underwent extensive evaluation. BP 116/72, HR 89, RR 18, 94% on RA, T 98.1F. CBC, Coag panel, CMP done significant for WBC 11.6, MCV 101.3, Cl 113, glu 143. Mag 2. Troponin < 0.012 x 2. EKG revealed sinus mechanism with nonspecific ST-T wave changes. CXR negative. Admitted for chest pain rule out ACS. Troponins negative x 2. Echo showed EF 60-65% with no wall motion abnormality. Cardiology consulted, underwent cardiac cath which showed mid LAD has intermediate to severe lesion status post stenting of mid LAD. 11/17 Patient was seen and examined. No acute events overnight. Reports some chest tightness. General: non toxic, no distress, appears at stated age Derm: warm, dry Head: atraumatic, normocephalic, symmetric Eyes: EOMI, no lid lag, anicteric sclera Mouth: no lip lesion, mucus membranes moist Cardiovascular: Good distal perfusion in all 4 extremities. Normal S1S2. Lungs: Breathing comfortably , no accessory muscle use, CTA BL Ext: no gross muscle atrophy, no edema, no contractures Neuro: no focal neuro deficits Psych: Alert, oriented, appropriate affect Based on my assessment of this patient, this patient meets a high complexity level of care. Chest pain: ACS ruled out. Echo EF 60-65%. Cardiac cath which showed mid LAD has intermediate to severe lesion status post stenting of mid LAD. Brilinta 90 mg PO BID. Lipitor 20 mg PO QHS. Coreg 6.25 mg PO BID. Hypertension: Coreg as below. Hyperlipidemia: Lipitor as above. Diabetes mellitus: ISS. Accuchecks ACHS. Hypoglycemic precautions. Diabetic neuropathy: Cymbalta 20 mg PO QD. History of pulmonary embolism: Restart Eliquis 5 mg PO BID if OK with Cardiology. Morbid obesity: BMI 49.7: Structured weight loss program. CODE STATUS: FULL DVT Prophylaxis: Lovenox GI Prophylaxis: Protonix PO Designated medical POA if patient is not able to make medical decisions for themselves: I have reviewed the following sales and service consultant notes: Cardiology. Cath results. I have reviewed the results of the following tests: Troponin. Echo. I have ordered the following tests: BMP. I have discussed the care of this patient with the following independent historian: I have independently interpreted the following test below: I have discussed the management of this patient with the following physician: Objective - Vital Signs Vital signs: Vital Signs Temp 98.0 F 11/18/23 11:28 Pulse 76 11/18/23 07:20 Resp 18 11/18/23 11:28 BP 126/70 11/18/23 11:28 Pulse Ox 98 11/18/23 11:28 FiO2 Intake & Output 11/17/23 11/18/23 11/18/23 18:59 06:59 18:59 Intake Total 468 250 Output Total 550 250 Balance -82 -250 250 Weight 185.066 kg Intake: IV 250 Oral 468 Output: Urine 550 250 Other: Voiding Method Urinal # Voids 2 2 - Labs CBC & Chem 7: 11/17/23 01:52 11/17/23 01:52
[2023-11-18 12:51] LABS: Glucose,Whole Blood 162 mg/dL (70-110)
[2023-11-18] MEDS: INSULIN ASPART (NovoLOG) 100 UNIT/ML VIAL SQ SCH (12:57)
[2023-11-18] MEDS: SUCRALFATE 1 GM TAB PO SCH (12:57)
[2023-11-18 17:12] LABS: Glucose,Whole Blood 114 mg/dL (70-110)
[2023-11-18] MEDS: APIXABAN 5 MG TAB PO SCH (20:30)
[2023-11-18] MEDS: TAMSULOSIN 0.4 MG CAP.ER.24H PO SCH (20:30)
[2023-11-18] MEDS: TICAGRELOR 90 MG TAB PO SCH (20:30)
[2023-11-18] MEDS: PRAMIPEXOLE 1 MG TAB PO SCH (20:30)
[2023-11-18 21:55] LABS: Glucose,Whole Blood 123 mg/dL (70-110)
[2023-11-19] MEDS: PANTOPRAZOLE 40 MG TABLET PO SCH (05:30)
[2023-11-19 06:47] LABS: Glucose,Whole Blood 161 mg/dL (70-110)
[2023-11-19 07:49] VITALS: BP 119/76; PULSE 87; RESP 17; TEMP 98
[2023-11-19 07:54] LABS: African American GFR (CKD) >90 (>60 ml/min/1.73 sqM); Non-African American GFR(CKD) 89 (>60 ml/min/1.73 sqM)
[2023-11-19] MEDS: DULoxetine HCL 20 MG CAPSULE.DR PO SCH (09:00)
[2023-11-19] MEDS ORDERED: ENOXAPARIN 40 MG/0.4 ML SYRINGE SQ SCH (09:00)
[2023-11-19] MEDS: ASPIRIN 81 MG PO SCH (09:00)
[2023-11-19] MEDS: APIXABAN 2.5 MG TABLET PO SCH (10:31)
--- NOTE | 2023-11-19 11:27 | P.DS ---
Providers Date of admission: 11/17/23 03:32 Expected date of discharge: 11/19/23 Attending physician: Liza Donovan MD Consults: 11/17/23 03:31 Consult Physician Urgent Consulting Provider: Emily Diego Consult Reason/Comments: Chest pain Do you want consulting provider notified?: Yes 11/18/23 11:13 Consult Physician Routine Consulting Provider: Emily Diego Consult Reason/Comments: Post Interventional Patient Do you want consulting provider notified?: Already Contacted Primary care physician: Piotr [facility] Course: 77 year old M with PMH of pulmonary fibrosis, DM, BPH, PE, HLD, HTN, sleep apnea presents to the ED for chest tightness. In the ED, he underwent extensive evaluation. BP 116/72, HR 89, RR 18, 94% on RA, T 98.1F. CBC, Coag panel, CMP done significant for WBC 11.6, MCV 101.3, Cl 113, glu 143. Mag 2. Troponin < 0.012 x 2. EKG revealed sinus mechanism with nonspecific ST-T wave changes. CXR negative. Admitted for chest pain rule out ACS. Troponins negative x 2. Echo showed EF 60-65% with no wall motion abnormality. Cardiology consulted, underwent cardiac cath which showed mid LAD has intermediate to severe lesion s tatus post stenting of mid LAD. 11/18 Patient was seen and examined. No more chest tightness. Renal function within normal limits. Plans for discharge home on ASA, Eliquis and Brilinta. Follow up with Cardiology within 1 week of discharge. General: non toxic, no distress, appears at stated age Derm: warm, dry Head: atraumatic, normocephalic, symmetric Eyes: EOMI, no lid lag, anicteric sclera Mouth: no lip lesion, mucus membranes moist Cardiovascular: Good distal perfusion in all 4 extremities. Normal S1S2. Lungs: Breathing comfortably , no accessory muscle use, CTA BL Ext: no gross muscle atrophy, no edema, no contractures Neuro: no focal neuro deficits Psych: Alert, oriented, appropriate affect Discharge Diagnosis: Chest pain CAD Hypertension Hyperlipidemia Diabetes mellitus Diabetic neuropathy History of pulmonary embolism Morbid obesity This complex discharge took 35 minutes to complete. Patient Condition at Discharge: Stable Plan - Discharge Summary New Discharge Prescriptions: New Ticagrelor [Brilinta] 90 mg PO BID #60 tab Nitroglycerin Sl Tabs [Nitrostat] 0.4 mg SUBLINGUAL Q5M PRN #30 tab PRN Reason: Chest Pain Apixaban [Eliquis] 2.5 mg PO BID #60 tab Continue Tamsulosin HCl [Flomax] 0.4 mg PO BID diazePAM [Valium] 5 mg PO HS PRN PRN Reason: Anxiety Acetaminophen Tab [Tylenol] 1,000 mg PO BID PRN PRN Reason: Pain Stool Softener 2 - 3 tab PO QAM Furosemide [Lasix] 20 mg PO BID DULoxetine HCL [Cymbalta] 20 mg PO DAILY Ergocalciferol [Vitamin D2 (1250 Mcg = 50884 Iu)] 1,250 mcg PO TU Multivitamin [Multivitamins Adult Gummies] 1 tab PO BID Omeprazole [PriLOSEC] 40 mg PO DAILY Pramipexole Di-HCl [Mirapex] 1.5 mg PO HS Sucralfate [Carafate] 1 gm PO ACHS Cyanocobalamin (Vitamin B-12) [Vitamin B-12] 1,000 mcg PO AC-BRKFST Vit C/E/Zn/Coppr/Lutein/Zeaxan [Preservision Areds 2 Softgel] 1 cap PO BID Calcium Citrate Er 20 meq PO QID Celebrate Multi Vitamin 1 tab PO BID Ferrous Sulfate Er 324mg 324 mg PO HS Atorvastatin [Lipitor] 20 mg PO HS carvediloL [Coreg] 6.25 mg PO BID Fluticasone Nasal [place] [Flonase Nasal [place]] 1 spray EA NOSTRIL BID metFORMIN HCL [Glucophage] 500 mg PO DAILY Discontinued Apixaban [Eliquis] 5 mg PO BID Discharge Medication List Acetaminophen Tab [Tylenol] 1,000 mg PO BID PRN 07/22/16 [History] Stool Softener 2 - 3 tab PO QAM 07/22/16 [History] Tamsulosin HCl [Flomax] 0.4 mg PO BID 07/22/16 [History] diazePAM [Valium] 5 mg PO HS PRN 07/22/16 [History] Cyanocobalamin (Vitamin B-12) [Vitamin B-12] 1,000 mcg PO AC-BRKFST 02/13/21 [History] Furosemide [Lasix] 20 mg PO BID 05/13/22 [History] Vit C/E/Zn/Coppr/Lutein/Zeaxan [Preservision Areds 2 Softgel] 1 cap PO BID 05/13/22 [History] Atorvastatin [Lipitor] 20 mg PO HS 11/17/23 [History] Calcium Citrate Er 20 meq PO QID 11/17/23 [History] Celebrate Multi Vitamin 1 tab PO BID 11/17/23 [History] DULoxetine HCL [Cymbalta] 20 mg PO DAILY 11/17/23 [History] Ergocalciferol [Vitamin D2 (1250 Mcg = 38551 Iu)] 1,250 mcg PO TU 11/17/23 [History] Ferrous Sulfate Er 324mg 324 mg PO HS 11/17/23 [History] Fluticasone Nasal [place] [Flonase Nasal [place]] 1 spray EA NOSTRIL BID 11/17/23 [History] Multivitamin [Multivitamins Adult Gummies] 1 tab PO BID 11/17/23 [History] Omeprazole [PriLOSEC] 40 mg PO DAILY 11/17/23 [History] Pramipexole Di-HCl [Mirapex] 1.5 mg PO HS 11/17/23 [History] Sucralfate [Carafate] 1 gm PO ACHS 11/17/23 [History] carvediloL [Coreg] 6.25 mg PO BID 11/17/23 [History] metFORMIN HCL [Glucophage] 500 mg PO DAILY 11/17/23 [History] Apixaban [Eliquis] 2.5 mg PO BID #60 tab 11/19/23 [Rx] Nitroglycerin Sl Tabs [Nitrostat] 0.4 mg SUBLINGUAL Q5M PRN #30 tab 11/19/23 [Rx] Ticagrelor [Brilinta] 90 mg PO BID #60 tab 11/19/23 [Rx] Follow up Appointment(s)/Referral(s): Fransisco Lane DO [STAFF PHYSICIAN] - 1 Week (Office will call with appointment time and date) Piotr Lacy DO [Primary Care Provider] - 1-2 days Patient Instructions/Handouts: *Surgery [facility] - After Heart Catheterization - Corporate Events Director Instructions, Chest Pain (DC) Discharge Disposition: HOME SELF-CARE
--- NOTE | 2023-11-19 11:48 | P.PN ---
Subjective HISTORY OF PRESENT ILLNESS: This is a 77-year-old male with a past medical history significant for diabetes, SVT, hypertension, and hyperlipidemia. Patient used to follow in the office with Dr. Tilley but has not been seen since 2017. We have been asked to see the patient in consultation for chest pain. Patient examined at the bedside. Patient states that he was at home when he was awoken from sleep with chest discomfort. He states that he was diaphoretic and felt palpitations. He states the pain was across his entire chest. He states he did take nitro with relief of the discomfort. He denies having any chest pain or pressure this morning the time of examination. 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 The patient also reports he is not very active at baseline and uses a walker to ambulate. DIAGNOSTICS: - EKG reveals sinus mechanism with nonspecific ST-T wave changes. - Chest xray negative for acute process. - Laboratory data: WBC 11.6. Hemoglobin 15.1. Platelet count 253. Sodium 141. Potassium 4.3. BUN 20. Creatinine 0.83. Troponin negative x 1 - Current home cardiac medications include carvedilol 6.25 mg twice a day, Eliquis 5 mg twice a day, Lasix 20 mg twice a day, Lipitor 20 mg at night. Addendum entered and electronically signed by Jessica Delgado NP-C 11/17/23 12:17: Lexiscan unable to be completed due to body habitus Recommend cardiac catheterization for definitive diagnosis Patient is agreeable to undergo cardiac catheterization N.p.o. at midnight Patient will be scheduled for cardiac catheterization tomorrow with Dr. Solorio Continue to hold Eliquis Further recommendations pending patient course 11/19/2023 Patient is status post cardiac catheterization yesterday with Dr. Solorio. Patient underwent stenting of the mid LAD. Patient examined this morning the bedside. Patient denies any chest pain or pressure. He denies any shortness of breath. Vital signs are stable. PHYSICAL EXAM: VITAL SIGNS: Reviewed. GENERAL: Well-developed in no acute distress. HEENT: Head is normocephalic. Pupils are equal, round. Sclerae anicteric. Mucous membranes of the mouth are moist. Neck supple. No JVD or thyromegaly LUNGS: Respirations even and unlabored. Lungs essentially clear to auscultation bilaterally. HEART: Regular rate and rhythm. S1 and S2 heard. ABDOMEN: Soft. Nondistended. Nontender. EXTREMITIES: Normal range of motion. No clubbing or cyanosis. Peripheral pulses intact. No lower extremity edema NEUROLOGIC: Awake and alert. Oriented x 3. ASSESSMENT: Chest pain, status post cardiac catheterization with stenting of the mid LAD Hypertension Hyperlipidemia Diabetes Diabetic neuropathy History of SVT with previous ablation History of pulmonary embolism, on Eliquis outpatient Morbid obesity: BMI 49.7 Chronic dyspnea secondary to agent orange exposure per patient PLAN: Continue dual antiplatelet therapy with aspirin and Brilinta Resume Eliquis. Decrease dosage to 2.5 mg twice a day per Dr. Solorio as patient is also prescribed aspirin and Brilinta Aspirin will be discontinued after 1 month and patient can continued on Eliquis and Brilinta Continue high intensity statin. LDL goal less than 70. Continue additional cardiac medications Patient is stable for discharge home today from a cardiac standpoint He is to follow-up postdischarge with Dr. Solorio Nurse practitioner note has been reviewed by physician. Signing provider agrees with the documented findings, assessment, and plan of care documented by [employer] as a scribe. Objective - Vital Signs Vital signs: Vital Signs Temp 98 F 11/19/23 07:00 Pulse 87 11/19/23 07:00 Resp 17 11/19/23 07:00 BP 119/76 11/19/23 07:00 Pulse Ox 94 L 11/19/23 07:00 FiO2 Intake & Output 11/18/23 11/19/23 11/19/23 18:59 06:59 18:59 Intake Total 600 400 0 Output Total 400 750 Balance 200 -350 0 Intake: IV 250 Oral 350 400 0 Output: Urine 400 750 Other: Voiding Method Urinal Urinal # Voids 2 1 # Bowel Movements 1 - Labs CBC & Chem 7: 11/17/23 01:52 11/19/23 06:39 Labs: Abnormal Lab Results - Last 24 Hours (Table) 11/18/23 11/18/23 11/18/23 Range/Units 12:50 17:10 21:54 POC Glucose (mg/dL) 162 H 114 H 123 H (70-110) mg/dL 11/19/23 Range/Units 06:46 POC Glucose (mg/dL) 161 H (70-110) mg/dL
== END 2023-11-19 10:47 | disposition home or self-care (01) ==
LOC: EC 01:33 → 6NMEDSUR 03:32
PROVIDERS: ADMIT Internal Medicine; ATTEND Internal Medicine
DX: I25.10 Atherosclerotic heart disease of native coronary artery without angina pectoris (principal); I10 Essential (primary) hypertension; E11.40 Type 2 diabetes mellitus with diabetic neuropathy, unspecified; J84.10 Pulmonary fibrosis, unspecified; E78.5 Hyperlipidemia, unspecified; I47.10 Supraventricular tachycardia, unspecified; I27.20 Pulmonary hypertension, unspecified; N40.0 Benign prostatic hyperplasia without lower urinary tract symptoms; G47.30 Sleep apnea, unspecified; E66.01 Morbid (severe) obesity due to excess calories; Z68.42 Body mass index [BMI] 45.0-49.9, adult; Z79.84 Long term (current) use of oral hypoglycemic drugs; Z79.01 Long term (current) use of anticoagulants; Z79.899 Other long term (current) drug therapy; Z88.5 Allergy status to narcotic agent; Z86.711 Personal history of pulmonary embolism; Z77.098 Contact with and (suspected) exposure to other hazardous, chiefly nonmedicinal, chemicals
CPT/HCPCS: 99285; 36415; 93005; 92978; 93454; 93799; 76937; 80053; 82565; 83735; 84484; 85025; 85610; 85730; 71046; G0378 ×3; C8929; C9600; C1887; C1769 ×3; C1894; C1753; C1874; C1725; J2250; J2001; Q9957; J1644; Q9967; 93306

== ENCOUNTER → 2024-01-12 | Outpatient (CLI) | payer MEDICARE | END | disposition home or self-care (01) | LOC: LABPRL 12:34 | PROVIDERS: ATTEND Internal Medicine | DX: E11.9 Type 2 diabetes mellitus without complications (principal) | CPT/HCPCS: 82043; 82570; 87086 ==

== ENCOUNTER → 2024-10-18 | Outpatient (CLI) | payer MEDICARE ==
--- NOTE | 2024-10-18 14:17 | CT ---
INDICATION: Patient age:Male; 78 years old; Reason for study: J84.9 INTERSTITIAL PULMONARY DISEASE, UNSPECIFIED; [facility]. COMPARISON: CT chest 10/28/2023, CTA chest 05/31/2019, CT chest abdomen 02/03/2019 TECHNIQUE: Multiple thin axial images were obtained through the chest at selected intervals. Supine inspiratory along with supine expiratory images were submitted for review. Patient could not lay prone for imagin g. Please note that due to interval acquisition images as defined by high-resolution CT protocol the entire lung parenchyma is not evaluated, therefore small nodular densities may not be visualized. Ev aluation of vascular structures, viscera and lymphatics is limited due to lack of intravenous contras t administration. One or more CT dose reduction strategies were utilized during this examination. Tot al DLP 1210.30 mGycm. FINDINGS: LUNGS: No significant groundglass opacities or honeycombing identified. Similar scattered subpleural reticular opacities throughout the lungs no architectural distortion or bronchiectasis. No acute area of infiltrative or consolidative change. LARGE AIRWAYS: Central airways are patent. No dynamic airway collapse on expiratory imaging. PLEURA: No pleural effusion or thickening. HEART AND PERICARDIUM: The heart is mildly enlarged. There is no pericardial effusion. Moderate coron kan artery calcifications present. MEDIASTINUM AND RICARDO: No mediastinal or hilar lymphadenopathy or soft tissue mass. VESSELS: Normal course of the thoracic aorta with aneurysmal dilatation of the ascending thoracic aor ta measuring up to 4.6 cm. CHEST WALL AND DIAPHRAGM: Bilateral gynecomastia is incidentally noted. LOWER NECK: Normal. UPPER ABDOMEN: Small to moderate sized hiatal hernia. MUSCULOSKELETAL: No acute fracture. Bilateral shoulder arthropathy. IMPRESSION: 1. 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 No evidence of honeycombing. 2. Redemonstration of ascending aortic aneurysm measuring up to 4.6 cm. [facility], , 10/18/2024 2:14 PM
== END | disposition home or self-care (01) ==
LOC: RADCTMAIN 13:25
PROVIDERS: ATTEND Internal Medicine
DX: J84.9 Interstitial pulmonary disease, unspecified (principal); J84.10 Pulmonary fibrosis, unspecified; I71.21 Aneurysm of the ascending aorta, without rupture
CPT/HCPCS: 71250